=== PATIENT | female | born 1985 | race Two or more races ===

== ENCOUNTER 2024-06-29 21:21 | Emergency (ER) | payer MEDICAID, SELFPAY ==
[2024-06-29 21:23] VITALS: BMI 38.9
[2024-06-29 21:58] VITALS: BP 153/87; PULSE 82; RESP 18; TEMP 37; O2SAT 98
--- NOTE | 2024-06-29 22:01 | XR_ITS ---
Examination: Complete OB ultrasound, less than 14 weeks, transabdominal Date and time of exam: June 29, 2024 1034 hrs. Indications: Vaginal bleeding today with pelvic pain Technique: Obstetrical ultrasound images less than 14 weeks performed via transabdominal imaging Findings: A normal shaped single intrauterine gestation is present in the uterus. Uterus 14.4 x 8.3 x 9.7 cm pole 5.8 cm corresponds to 12 weeks 2 days duration lesions Cardiac motion 176 BPM Ultrasonographic survey of visible and placental structures unremarkable. Amniotic fluid volume appears appropriate for this estimated gestational age. Right ovary 3.0 x 1.8 x 2.0 cm arterial flow 21 mm cyst Left ovary 3.5 x 2.4 x 2.4 cm arterial flow 15 mm follicular cyst No fluid in the cul-de-sac Impression: Viable intrauterine gestation 12 weeks 2 days No subchorionic hemorrhage.
--- NOTE | 2024-06-29 22:02 | PD.EDVAGBL ---
ED OB Contraction Preg RMI/HPI General Chief complaint: Vaginal Bleeding Stated complaint: RIGHT LOWER ABD PAIN, 11 WEEKS Time Seen by Provider: 06/29/24 22:01 Source: patient Arrival date/time: 06/29/24 21:21 39-year-old female G6, P5 with no past medical history presents emergency department complaining of vaginal spotting and abdominal cramping that started this morning. Patient denies any fever, chills, cough, shortness of breath, nausea vomiting, dysuria, or any other associated symptom. Mode of arrival: ambulatory Limitations: no limitations Related Data Previous Rx's ?Medication ?Instructions ?Recorded dicyclomine 20 mg tablet 20 mg PO QID PRN abdominal pain 05/11/19 #14 tabs ondansetron HCl 4 mg tablet 4 mg PO QID PRN nausea and 05/11/19 (Zofran) vomiting #14 tabs hydrocodone 5 mg-acetaminophen 325 1 tab PO BID PRN pain #8 tabs 08/29/21 mg tablet ibuprofen 600 mg tablet 600 mg PO Q6H #30 tabs 04/06/24 cephalexin 500 mg capsule 500 mg PO BID 7 days #14 caps 06/30/24 Allergies Allergy/AdvReac Type Severity Reaction Status Date / Time No Known Allergies Allergy Verified 04/10/24 06:23 Review of Systems Review of Systems Systems Reviewed: All systems reviewed, normal except as documented Constitutional Constitutional: Reports system reviewed and no additional complaints, except as documented, Denies body ache(s), Denies chills and Denies fever(s) Eyes Eyes: Reports system reviewed and no additional complaints, except as documented and Denies change in vision ENT Ears, Nose, Mouth, and Throat: Reports system reviewed and no additional complaints, except as documented, Denies disequilibrium, Denies dizziness, Denies sore throat and Denies vertigo Cardiovascular Cardiovascular: Reports system reviewed and no additional complaints, except as documented, Denies chest pain and Denies dyspnea Respiratory Respiratory: Reports system reviewed and no additional complaints, except as documented, Denies chest congestion, Denies cough and Denies dyspnea Gastrointestinal Gastrointestinal: Reports system reviewed and no additional complaints, except as documented, Reports abdominal pain, Denies nausea and Denies vomiting Genitourinary Genitourinary: Reports abnormal vaginal bleeding Musculoskeletal Musculoskeletal: Reports system reviewed and no additional complaints, except as documented, Denies abnormal gait and Denies arthralgias Integumentary/Breasts Skin/Breast: Reports system reviewed and no additional complaints, except as documented, Denies erythema, Denies rash and Denies wounds Neurologic Neurologic: Reports system reviewed and no additional complaints, except as documented, Denies abnormal gait, Denies disequilibrium, Denies dizziness and Denies vertigo Past Medical History Past Medical History NEUROLOGIC: Negative Neurological Disorders CARDIAC: Negative Cardiac Disorders or Congestive Heart Failure RESPIRATORY: Negative Chronic Obstructive Pulmonary Disease (COPD) GASTROINTESTINAL: Negative Gastrointestinal Disorders, Hepatitis or Colorectal Cancer GENITOURINARY: Negative Genitourinary Disorders, Renal Disease or Prostate Cancer REPRODUCTIVE: Positive Previous Pregnancies (p5); Negative Breast Cancer or Testicular Cancer MUSCULOSKELETAL: Negative Musculoskeletal Disorders or Bone Cancer ENDOCRINE: Positive Endocrine Disorders; Negative Diabetes Mellitus Type 1 or Diabetes Mellitus Type 2 HEMATOLOGIC: Negative Blood Disorders OTHER HISTORY: Positive Hospitalization (childbirth); Negative Autoimmune Disease, Down Syndrome, Developmental Delay, Shingles, Falls, Blood Transfusions, Blood Transfusion Reaction, Anesthesia Reactions, Organ Transplant, Chemotherapy, Radiation Therapy, Hyperbaric Therapy, MRSA, VRSA, Vancomycin-Resistant Enterococci, Human Immunodeficiency Virus (HIV), Chicken Pox, Measles, Mumps, Rubella ([place] Measles), Pertussis, Clostridium Difficile, Breast Cancer, Cervical Cancer, Colorectal Cancer, Lung Cancer, Ovarian Cancer, Prostate Cancer or Testicular Cancer Family History FAMILY HISTORY: Positive Family Cardiac Disorders (mother-HTN); Negative Family Psychiatric Problems, Family Respiratory Disorders, Family Gastrointestinal Problems, Family Cancer, Family Surgery or Family Anesthesia Reaction Surgical History SURGICAL: Negative Section or Organ Transplant Social History SMOKING STATUS: 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 SECOND HAND EXPOSURE: No ED Exam General Limitations: Present no limitations General appearance: Present alert and in no apparent distress Head Head exam: Present atraumatic Eye Eye exam: Present normal appearance, PERRL and EOMI ENT ENT exam: Present normal exam, normal oropharynx and mucous membranes moist Neck Neck exam: Present normal inspection, full ROM and trachea midline Chest Chest inspection: Present normal inspection and symmetric chest wall rise Respiratory Respiratory exam: Present normal lung sounds bilaterally Cardiovascular Cardiovascular exam: Present regular rate, normal rhythm and normal heart sounds Abdominal Exam Abdominal exam: Present soft and normal bowel sounds Extremities Exam Extremities exam: Present normal inspection and full ROM Back Exam Back exam: Present normal inspection and full ROM Neurological Exam Neurological exam: Present alert, oriented X3 and CN II-XII intact Psychiatric Psychiatric exam: Present normal affect and normal mood Skin Skin exam: Present warm, dry, intact and normal color Course Quality Measures none Orders Category Date Time Status US OB <= 14 weeks fetus Stat Exams 06/29/24 22:01 Completed ABO/RH Type Stat Lab 06/29/24 22:48 Completed Beta HCG,Quantitative Stat Lab 06/29/24 22:48 Completed CBC Stat Lab 06/29/24 22:48 Completed CMP [Comprehensive Metabolic Panel] Stat Lab 06/29/24 22:48 Completed Urinalysis, C/S if Indicated Stat Lab 06/29/24 23:14 Completed Urine Culture Stat Lab 06/29/24 23:14 Received Vital Signs Vital signs: Vital Signs Temperature 98.6 F 06/29/24 21:58 Pulse Rate 82 06/29/24 21:58 Respiratory Rate 18 06/29/24 21:58 Blood Pressure 153/87 H 06/29/24 21:58 Pulse Oximetry (%) 98 06/29/24 21:58 Oxygen Delivery Method Room Air 06/29/24 21:58 98% room air within normal limits Vaginal Bleeding MDM Narrative MDM Narrative: 39-year-old female G6, P5 with no past medical history presents emergency department complaining of vaginal spotting and abdominal cramping that started this morning. Patient denies any fever, chills, cough, shortness of breath, nausea vomiting, dysuria, or any other associated symptom. CBC was unremarkable for any leukocytosis and hemoglobin 11.3. CMP was unremarkable. Beta-hCG 40,734. Ultrasound findings Viable intrauterine gestation 12 weeks 2 days. urinalysis did have WBC, bacteria, and positive for leukocytes. Patient is asymptomatic but treated with antibiotic due to currently being . Patient called over telephone made aware of prescription. Patient discharged home instructed to follow-up with [facility] 24 to 48 hours. Instructed to return to emergency department for any increased bleeding or worsening symptoms. Patient data External records reviewed:: [facility] previous records Clinical information provided by:: patient Social determinants that could affect healthcare access:: none Patient has the following chronic illnesses:: See chart How is presenting disease/condition affected by chronic disease/condition?: no chronic disease Evaluation data The following diagnostics were reviewed and interpreted by me:: lab results and radiology exam(s) Lab and/or radiology exams considered but not ordered:: Ordered Interpretation Summary: Interpreted by me Medications / Prescriptions Medications or Prescriptions considered but not ordered:: Not applicable Medication administrations:: Not applicable Consultations Consultation(s) initiated? (list below): No Diagnosis Vaginal Bleeding Differential Diagnosis: threatened , dysfunctional uterine bleeding and vaginal bleeding Most likely diagnosis given after review of the tests above:: Vaginal bleeding early UTI Admission Indicated Admission indicated?: not indicated Admission Request Was there a request for admission?: No Disposition Plan Disposition Plan: Discharge Discharge Attestation Discharge Attestation: The patient and all family members were given an opportunity to ask questions and understood the discharge instructions. Discharge instructions specifically effects, indications for sooner follow up or return to the emergency department, and the expected course of current diagnosis. Patient condition: Stable Discharge Plan Plan Patient Disposition: HOME (Self Care) Disposition Comment: Stable Prescriptions/Referrals Prescriptions/Med Rec: New cephalexin 500 mg capsule 500 mg PO BID 7 Days Qty: 14 0RF No Action ondansetron HCl [Zofran] 4 mg tablet 4 mg PO QID PRN (Reason: nausea and vomiting) Qty: 14 0RF dicyclomine 20 mg tablet 20 mg PO QID PRN (Reason: abdominal pain) Qty: 14 0RF hydrocodone-acetaminophen 5-325 mg tablet 1 tab PO BID MDD 10 PRN (Reason: pain) Qty: 8 0RF ibuprofen 600 mg tablet 600 mg PO Q6H Qty: 30 0RF Problem List Clinical Impression: Vaginal bleeding affecting early , UTI in Patient/Caregiver Discharge Instructions Discharge Activity: activity as tolerated Education Materials: Bleeding During Early Additional Instructions: Plenty of fluids and stay hydrated. Pelvic rest. Follow-up with [facility] in 24 to 48 hours. Return to emergency department for any worsening symptoms or as needed. Print Language: Italian Stand Alone Forms: Stephanie Award Info., Patient Portal Info Letter MD Attestation Attestation The patient was seen by the midlevel practitioner. I, the co-signing physician, was present during the entire ER visit. While I did not physically examine the patient, I was available for consultation as needed.
[2024-06-29 23:01] LABS: Basophils % (Auto) 0 % (0-2.5); Eosinophils # (Auto) 0.1 Thou/mm3 (0.0-0.5); Eosinophils % (Auto) 1 % (0-10); Hematocrit 34.9 % (36.0-46.0); Hemoglobin 11.3 g/dL (12.0-16.0); Immature Granulocytes % (Auto) 1 % (0-0); Immature Granulocytes Auto 0.06 Thou/mm3 (0.00-0.00); Lymphocytes # (Auto) 1.7 Thou/mm3 (1.0-4.8); Lymphocytes % (Auto) 23 % (10-50); Mean Corpuscular HGB Conc 32.4 g/dl (31.0-37.0); Mean Corpuscular Hemoglobin 26.5 pg (25.0-35.0); Mean Corpuscular Volume 82 fL (80-100); Monocytes # (Auto) 0.5 Thou/mm3 (0.0-0.8); Monocytes % (Auto) 7 % (0-12); Neutrophils % (Auto) 67 % (37-80); Nucleated Red Blood Cell % 0 /100 WBC (0); Platelet Count 336 Thou/mm3 (140-440); RDW Standard Deviation 51.3 fL (36.4-46.3); Red Blood Count 4.27 Miln/mm3 (4.00-5.20); White Blood Count 7.5 Thou/mm3 (3.6-11.0)
[2024-06-29 23:22] LABS: Collection Type, Urine Clean Catch
[2024-06-29 23:25] LABS: Alanine Aminotransferase 12 U/L (10-49); Albumin, Serum 4.5 gm/dL (3.5-5.0); Albumin/Globulin Ratio 1.5 (1.2-2.2); Alkaline Phosphatase 70 U/L (46-116); Anion Gap 7 (7-16); Aspartate Amino Transferase 12 U/L (0-34); BUN/Creatinine Ratio 15 Ratio (12-20); Bilirubin,Total 0.4 mg/dL (0.3-1.2); Blood Urea Nitrogen 9 mg/dL (9-23); Calcium 10.5 mg/dL (8.3-10.6); Calcium (Corrected) 10.5 mg/dL (8.5-10.1); Carbon Dioxide 25.3 mMol/L (20.0-31.0); Chloride 104 mMol/L (98-107); Creatinine (Component) 0.6 mg/dL (0.6-1.3); Estimated Creatinine Clearance 131.3 mL/min (>60); Glucose 92 mg/dL (74-106); Osmolality,Calculated 270 (275-295); Potassium 3.9 mMol/L (3.4-5.1); Sodium 136 mMol/L (136-145); Total Protein 7.5 gm/dL (5.7-8.2); eGFR > 60 See Note
[2024-06-29 23:45] LABS: Bacteria,Urine 1+; Bilirubin,Urine Negative (Negative); Blood,Urine 3+ (Negative); Clarity,Urine Turbid (Clear/Hazy); Color,Urine Light-Red (Lt Yel-Yel); Glucose, Urine Negative (Negative); Ketones,Urine Negative (Negative); Leukocyte Esterase,Urine Positive (Negative); Nitrite,Urine Negative (Negative); PH,Urine 6.5 (5.0-7.0); Protein,Urine 2+ (Neg - Trace); RBC,Urine 312 /hpf (0-3); Specific Gravity,Urine 1.007 (1.001-1.035); Squamous Epithelial Cell,Urine 7 /hpf (0-5); Urobilinogen,Urine Negative mg/dL (0.0-1.0); WBC,Urine 25 /hpf (0-5)
[2024-06-29 23:48] LABS: Culture Indicated,Urine Yes
[2024-06-29 23:59] LABS: Beta HCG,Quantitative 40734 mIU/mL (<5.0)
[2024-06-30 00:22] VITALS: BP 134/67; PULSE 67; RESP 19; TEMP 36.7; O2SAT 99
== END 2024-06-30 00:23 | disposition home or self-care (01) ==
LOC: SERX 06-30 01:33
PROVIDERS: Emergency Provider Emergency Medicine
DX: O20.9 Hemorrhage in early pregnancy, unspecified (principal); O23.41 Unspecified infection of urinary tract in pregnancy, first trimester; N39.0 Urinary tract infection, site not specified; Z3A.12 12 weeks gestation of pregnancy
CPT/HCPCS: 36415; 76801; 80053; 81001; 84702; 85025; 86900; 86901; 87086; 99284

== ENCOUNTER 2024-10-31 21:18 | Observation (INO) | payer MEDICAID, SELFPAY ==
[2024-10-31 21:27] VITALS: BP 165/93; PULSE 96; RESP 18; RESP 97; TEMP 36.7
[2024-10-31 21:41] VITALS: BP 165/93; PULSE 96
[2024-10-31 21:57] VITALS: BP 124/65; PULSE 86
[2024-10-31 22:06] VITALS: BMI 43.5
[2024-10-31 22:12] VITALS: BP 109/58; PULSE 78
[2024-10-31 22:22] LABS: Collection Type, Urine Clean Catch
[2024-10-31 22:28] LABS: Bacteria,Urine 1+; Bilirubin,Urine Negative (Negative); Blood,Urine 1+ (Negative); Clarity,Urine Clear (Clear/Hazy); Color,Urine Lt-Yellow (Lt Yel-Yel); Glucose, Urine Negative (Negative); Ketones,Urine Negative (Negative); Leukocyte Esterase,Urine Negative (Negative); Nitrite,Urine Negative (Negative); PH,Urine 6.5 (5.0-7.0); Protein,Urine Negative (Neg - Trace); RBC,Urine 2 /hpf (0-3); Specific Gravity,Urine 1.009 (1.001-1.035); Squamous Epithelial Cell,Urine 4 /hpf (0-5); Urobilinogen,Urine Negative mg/dL (0.0-1.0); WBC,Urine < 1 /hpf (0-5)
[2024-10-31 22:29] LABS: Culture Indicated,Urine Yes
--- NOTE | 2024-11-01 00:23 | PC.NURSE ---
2238: Late entry, Dr Saenz updated on maternal and status, b/p's and u/a results. Order to d/c home, pt to keep f/u appt with OB provider Brant shabazz and adan.
== END 2024-10-31 22:54 | disposition home or self-care (01) ==
PROVIDERS: Admitting Provider Obstetrics & Gynecology; Visit Provider Obstetrics & Gynecology
DX: O26.893 Other specified pregnancy related conditions, third trimester (principal); Z3A.29 29 weeks gestation of pregnancy; R10.9 Unspecified abdominal pain
CPT/HCPCS: 59025; 59899; 81001; 87086

== ENCOUNTER 2024-11-09 12:12 | Emergency (ER) | payer MEDICAID, SELFPAY ==
[2024-11-09 12:14] VITALS: BMI 43.1
--- NOTE | 2024-11-09 12:34 | EKG_ITS ---
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
[2024-11-09 12:47] VITALS: BP 122/76; PULSE 87; RESP 16; TEMP 36.9; O2SAT 97
--- NOTE | 2024-11-09 12:55 | EDRME_ITS ---
Rapid Medical Screening Exam RME Arrival date/time: 11/09/24 12:12 39-year-old female with history of gestational diabetes presents to the emergency room with a chief complaint of 7 out of 10 intermittent sternal chest pain x 2 days I have greeted and performed a focused initial assessment of this patient. A com prehensive ED assessment and evaluation of the patient, analysis of all test results, and completion of the medical decision making process will be conducted by additional ED providers. Chief Complaint: Chest Pain Vital signs reviewed by provider: Yes
[2024-11-09 13:04] LABS: Basophils % (Auto) 0 % (0-2.5); Eosinophils # (Auto) 0.1 Thou/mm3 (0.0-0.5); Eosinophils % (Auto) 1 % (0-10); Hematocrit 32.6 % (36.0-46.0); Hemoglobin 11.1 g/dL (12.0-16.0); Immature Granulocytes % (Auto) 2 % (0-0); Immature Granulocytes Auto 0.24 Thou/mm3 (0.00-0.00); Lymphocytes # (Auto) 1.5 Thou/mm3 (1.0-4.8); Lymphocytes % (Auto) 14 % (10-50); Mean Corpuscular Hemoglobin 28.2 pg (25.0-35.0); Mean Corpuscular Volume 83 fL (80-100); Monocytes # (Auto) 0.7 Thou/mm3 (0.0-0.8); Monocytes % (Auto) 7 % (0-12); Neutrophils # (Auto) 7.7 Thou/mm3 (1.8-7.7); Neutrophils % (Auto) 75 % (37-80); Nucleated Red Blood Cell % 0 /100 WBC (0); Platelet Count 307 Thou/mm3 (140-440); RDW Standard Deviation 39.8 fL (36.4-46.3); Red Blood Count 3.94 Miln/mm3 (4.00-5.20); White Blood Count 10.2 Thou/mm3 (3.6-11.0)
[2024-11-09 13:18] LABS: INR 0.9 (0.9-1.3); Partial Thromboplastin Time 27.3 Seconds (22.0-36.0); Prothrombin Time 10.3 Seconds (9.0-12.2)
[2024-11-09 13:23] LABS: B-Type Natriuretic Peptide < 20 pg/mL (0-100)
[2024-11-09 13:24] LABS: Alanine Aminotransferase 14 U/L (10-49); Albumin, Serum 3.8 gm/dL (3.5-5.0); Albumin/Globulin Ratio 1.4 (1.2-2.2); Alkaline Phosphatase 112 U/L (46-116); Anion Gap 9 (7-16); Aspartate Amino Transferase 16 U/L (0-34); BUN/Creatinine Ratio 13 Ratio (12-20); Bilirubin,Total 0.4 mg/dL (0.3-1.2); Blood Urea Nitrogen < 5 mg/dL (9-23); Calcium (Corrected) 9.2 mg/dL (8.5-10.1); Carbon Dioxide 19.7 mMol/L (20.0-31.0); Chloride 106 mMol/L (98-107); Creatinine (Component) 0.4 mg/dL (0.6-1.3); Estimated Creatinine Clearance 200.9 mL/min (>60); Globulin 2.8 gm/dL (2.3-3.5); Glucose 71 mg/dL (74-106); Magnesium 1.7 mg/dL (1.6-2.6); Osmolality,Calculated 265 (275-295); Sodium 135 mMol/L (136-145); Total Protein 6.6 gm/dL (5.7-8.2); Troponin I < 0.002 ng/mL (0.0-0.045); eGFR > 60 See Note
[2024-11-09 15:15] VITALS: BP 143/89; PULSE 82; RESP 18; TEMP 36.7; O2SAT 98
--- NOTE | 2024-11-09 15:22 | EDNOTE_ITS ---
ED General RME/HPI General Chief complaint: Chest Pain Stated complaint: CHEST PRESSURE, SOB X 2 DAYS, 31WKS PREG Time Seen by Provider: 11/09/24 14:56 Arrival date/time: 11/09/24 12:12 CC: Center anterior chest pain 7 out of 10 intermittent for the past 2 days last episode was early this morning with mild sweatiness. No prior history of similar events denies fever chills shortness of breath chest pain or difficulty breathing at the time of the exam. Patient is awake alert oriented nontoxic- appearing not in any acute distress. RME / HPI RME / HPI narrative: 11/09/24 12:12 39-year-old female with history of gestational diabetes presents to the emergency room with a chief complaint of 7 out of 10 intermittent sternal chest pain x 2 days I have greeted and performed a focused initial assessment of this patient. A comprehensive ED assessment and evaluation of the patient, analysis of all test results, and completion of the medical decision making process will be conducted by additional ED providers. Related Data Home Medications ?Medication ?Instructions ?Recorded ?Confirmed metformin 500 mg tablet 500 mg PO BID GDM 10/31/24 0 10/31/24 multivitamin with folic acid 400 tab PO 10/31/24 mcg tablet (Daily-Michelle (with folic acid)) Allergies Allergy/AdvReac Type Severity Reaction Status Date / Time No Known Allergies Allergy Verified 11/09/24 12:18 Review of Systems Review of Systems Narrative Review of Systems: GEN: No fever, no chills, no weight loss EYES: No discharge, no visual changes, no pain HEENT: No ear pain, no congestion, no sore throat PULM: No shortness of breath, no cough, no congestion CV: + chest pain, no dyspnea on exertion, no palpitations GI: No nausea, no vomiting, no diarrhea, no pain, no constipation : No frequency, no urgency, no dysuria MUSC/SKEL: No joint pain, no back pain SKIN: No rash PSYCH: No hallucinations, no depression HEME/LYMPH: No easy bleeding or bruising tendencies NEURO: No weakness, no headache ED Exam Narrative Physical exam: [General: Obese not in any acute distress Head normocephalic HEENT: Within acceptable limits Neck is supple nontender Chest equal chest rise nontender to palpation Respiratory: Clear to auscultation no wheezes crackles or rubs CV: Rate rhythm is regular no murmurs rubs or clicks Abdomen is distended secondary to body habitus soft nontender no masses positive bowel sounds all 4 quadrants Back: No CVA tenderness no spinous process tenderness from cervical spine thoracic and lumbar spine Skin: Intact no petechiae rash induration ulceration or crepitus Extremities: Moving all extremity against resistance cap refill less than 2 seconds neurosensory intact. No lower extremity edema. Neuro: Awake alert oriented x3 Glascow coma 15 no focal deficits] Course Quality Measures none Orders Category Date Time Status EKG (ED ONLY) *Do not use* NOW Care 11/09/24 12:34 Completed Glucose [Bedside Blood Glucose] NOW Care 11/09/24 14:55 Active EKG (ED Only) Stat Exams 11/09/24 12:34 Draft B-Type Natriuretic Peptide Stat Lab 11/09/24 12:41 Completed CBC Stat Lab 11/09/24 12:41 Completed Comprehensive Metabolic Panel Stat Lab 11/09/24 12:41 Completed Magnesium Stat Lab 11/09/24 12:41 Completed Partial Thromboplastin Time Stat Lab 11/09/24 12:41 Completed Prothrombin Time with INR Stat Lab 11/09/24 12:41 Completed Troponin I Stat Lab 11/09/24 12:41 Completed Vital Signs Vital signs: Vital Signs Temperature 98.5 F 11/09/24 12:47 Pulse Rate 87 11/09/24 12:47 Respiratory Rate 16 11/09/24 12:47 Blood Pressure 122/76 11/09/24 12:47 Pulse Oximetry (%) 97 11/09/24 12:47 Oxygen Delivery Method Room Air 11/09/24 12:47 [facility] Patient data External records reviewed:: [facility] previous records Clinical information provided by:: patient Social determinants that could affect healthcare access:: none Patient has the following chronic illnesses:: None How is presenting disease/condition affected by chronic disease/condition?: u neffected by Evaluation data The following diagnostics were reviewed and interpreted by me:: lab results, radiology exam(s) and EKG tracing(s) Lab and/or radiology exams considered but not ordered:: EKG performed at 1249 shows a ventricular rate of 84 IA interval 147 QRS of 82 QTc of 372 is normal sinus rhythm. CBC shows no leukocytosis anemia of 11.1 and 32.6 respectively. No thrombocytopenia Coags within acceptable limits CMP shows sodium 135 CO2 of 19.7 BUN less than 5 creatinine 0.4 glucose of 71 calculated serum osmolality of 265 no other electrolyte imbalances renal impairment transaminitis or T. bili elevation BNP is negative Troponin is negative Interpretation Summary: Patient has a heart score of 0, at this time of low index of suspicion of any acute finding, patient advised to follow with her primary care provider and consider an outpatient cardiac workup. If the patient has persistent chest pain that is unrelenting or worsening patient is to return the emergency room for reevaluation. Medications Medications considered but not ordered:: None Medication administrations:: None Consultations Consultation(s) initiated? (list below): No Diagnosis Differential Diagnosis ED Complaint MDM: ACS [place] pneumonia Most likely diagnosis given after review of the tests above:: Intermittent chest pain Admission Indicated Admission indicated?: not indicated Explain why admission is indicated or not indicated:: Stable for outpatient follow-up Admission Request Was there a request for admission?: No Disposition Plan Disposition Plan: Discharge Discharge Attestation Discharge Attestation: The patient and all family members were given an opportunity to ask questions and understood the discharge instructions. Discharge instructions specifically effects, indications for sooner follow up or return to the emergency department, and the expected course of current diagnosis. Patient condition: Stable Medical Decision Making Differential Diagnosis Differential Diagnosis: ACS [place] pneumonia Lab Data 11/09/24 12:41 11/09/24 12:41 Labs: Lab Results 11/09/24 Range/Units 12:41 WBC 10.2 (3.6-11.0) Thou/mm3 RBC 3.94 L (4.00-5.20) Miln/mm3 Hgb 11.1 L (12.0-16.0) g/dL Hct 32.6 L (36.0-46.0) % MCV 83 (80-100) fL MCH 28.2 (25.0-35.0) pg MCHC 34.0 (31.0-37.0) g/dl RDW Std Deviation 39.8 (36.4-46.3) fL Plt Count 307 (140-440) Thou/mm3 Neut % (Auto) 75 (37-80) % Lymph % (Auto) 14 (10-50) % [place] % (Auto) 7 (0-12) % Eos % (Auto) 1 (0-10) % Baso % (Auto) 0 (0-2.5) % Neut # (Auto) 7.7 (1.8-7.7) Thou/mm3 Lymph # (Auto) 1.5 (1.0-4.8) Thou/mm3 [place] # (Auto) 0.7 (0.0-0.8) Thou/mm3 Eos # (Auto) 0.1 (0.0-0.5) Thou/mm3 Baso # (Auto) 0.0 (0.0-0.2) Thou/mm3 Immature Gran # (Auto) 0.24 H (0.00-0.00) Thou/mm3 Absolute Nucleated RBC 0.00 (0.00-0.00) Thou/mm3 Immature Gran % 2 H (0-0) % Nucleated RBC % 0 (0) /100 WBC PT 10.3 (9.0-12.2) Seconds INR 0.9 (0.9-1.3) APTT 27.3 (22.0-36.0) Seconds Sodium 135 L (136-145) mMol/L Potassium 4.0 (3.4-5.1) mMol/L Chloride 106 (98-107) mMol/L Carbon Dioxide 19.7 L (20.0-31.0) mMol/L Anion Gap 9 (7-16) BUN < 5 L (9-23) mg/dL Creatinine 0.4 L (0.6-1.3) mg/dL Estim Creat Clear Calc 200.9 (>60) mL/min eGFR > 60 (60 - ) See Note BUN/Creatinine Ratio 13 (12-20) Ratio Glucose 71 L (74-106) mg/dL Calculated Osmolality 265 L (275-295) Calcium 9.0 (8.3-10.6) mg/dL Corrected Calcium 9.2 (8.5-10.1) mg/dL Magnesium 1.7 (1.6-2.6) mg/dL Total Bilirubin 0.4 (0.3-1.2) mg/dL AST 16 (0-34) U/L ALT 14 (10-49) U/L Alkaline Phosphatase 112 (46-116) U/L Troponin I < 0.002 (0.0-0.045) ng/mL B-Natriuretic Peptide < 20 (0-100) pg/mL Total Protein 6.6 (5.7-8.2) gm/dL Albumin 3.8 (3.5-5.0) gm/dL Globulin 2.8 (2.3-3.5) gm/dL Albumin/Globulin Ratio 1.4 (1.2-2.2) Discharge Plan Plan Patient Disposition: HOME (Self Care) Patient condition on transfer: Stable Prescriptions/Referrals Prescriptions/Med Rec: No Action metformin 500 mg tablet 500 mg PO BID Patient Comments: TOME 1 TABLETA POR V A ORAL DOS VECES AL D A CON LAS COMIDAS multivitamin with folic acid [Daily-Michelle (with folic acid)] 400 mcg tablet PO Patient Comments: TOME 1 TABLETA POR V A ORAL TODOS LOS D FOR 90 DAYS Referrals: Seferino Weston MD [Primary Care Provider] - In 1 week Problem List Clinical Impression: Intermittent chest pain, Atypical chest pain Patient/Caregiver Discharge Instructions Education Materials: ED Chest Pain, Uncertain Cause Additional Instructions: Return the emergency room if there is persistent chest pain in spite of medication. Print Language: Lithuanian Stand Alone Forms: Stephanie Award Info., Work/School Release, Patient Portal Info Letter PA/SERVOMECHANISM ASSEMBLER Supervising Physician PA/SERVOMECHANISM ASSEMBLER Supervising Physician: Clyde Pang ENP
== END 2024-11-09 16:11 | disposition home or self-care (01) ==
PROVIDERS: Nurse Practitioner Family; Emergency Provider Emergency Medicine; PCP Family Medicine
DX: O99.891 Other specified diseases and conditions complicating pregnancy (principal); R07.89 Other chest pain; R06.02 Shortness of breath; Z3A.31 31 weeks gestation of pregnancy
CPT/HCPCS: 36415; 80053; 83735; 83880; 84484; 85025; 85610; 85730; 93005; 99283

== ENCOUNTER 2024-11-23 12:32 | Outpatient (CLI) | payer MEDICAID, SELFPAY ==
[2024-11-23 12:35] VITALS: BMI 44.0
--- NOTE | 2024-11-23 12:37 | XR_ITS ---
Examination: Biophysical profile, ultrasound Date and time of exam: November 23, 2024 1244 hrs. Indications: Diagnosis advanced maternal age, diagnosis maternal obesity, diagnosis gestational diabetes Technique: Multiple transabdominal sonographic images of the pelvis abdomen obtained. Attention is directed to the breathing movement, gross body movement, amniotic fluid volume and tone. Findings: Amniotic fluid index 14.6 cm Total biophysical profile is 8 of 8. breathing movement is 2. Gross body movement is 2. tone is 2. Qualitative amniotic fluid volume is 2 Impression: Biophysical profile is 8 of 8.
[2024-11-23 12:58] VITALS: BP 129/74; PULSE 75
[2024-11-23 12:59] VITALS: TEMP 36.7
[2024-11-23 13:00] VITALS: BP 129/74; PULSE 75; RESP 18; RESP 98; TEMP 36.7
== END 2024-11-23 13:45 | disposition home or self-care (01) ==
LOC: S4S1 12:32 → S4SX 12:33
PROVIDERS: Referring Provider Obstetrics & Gynecology; Visit Provider Obstetrics & Gynecology
DX: O24.419 Gestational diabetes mellitus in pregnancy, unspecified control (principal); O99.213 Obesity complicating pregnancy, third trimester; E66.9 Obesity, unspecified; O09.523 Supervision of elderly multigravida, third trimester; Z3A.33 33 weeks gestation of pregnancy
CPT/HCPCS: 59025; 76819

== ENCOUNTER 2024-12-20 10:36 | Outpatient (RCR) | payer MEDICAID, SELFPAY ==
--- NOTE | 2024-12-06 11:16 | XR_ITS ---
Examination: Biophysical profile, ultrasound Date and time of exam: December 06, 2024 1149 hours INDICATIONS: Diagnosis gestational diabetes, diagnosis advanced maternal age, diagnosis maternal obesity Technique: Multiple transabdominal sonographic images of the pelvis abdomen obtained. Attention is directed to the breathing movement, gross body movement, amniotic fluid volume and tone. Findings: Amniotic fluid index 12.5 cm Total biophysical profile is 8 of 8. breathing movement is 2. Gross body movement is 2. tone is 2. Qualitative amniotic fluid volume is 2 Impression: Biophysical profile is 8 of 8.
[2024-12-06 12:15] VITALS: BP 135/81; PULSE 71; RESP 18; TEMP 37.1
--- NOTE | 2024-12-13 10:45 | XR_ITS ---
Examination: Biophysical profile, ultrasound Date and time of exam: December 13, 2024 1116 hours INDICATIONS: Diagnosis gestational diabetes, diagnosis advanced maternal age Technique: Multiple transabdominal sonographic images of the pelvis abdomen obtained. Attention is directed to the breathing movement, gross body movement, amniotic fluid volume and tone. Findings: Amniotic fluid index 17.4 cm Total biophysical profile is 8 of 8. breathing movement is 2. Gross body movement is 2. tone is 2. Qualitative amniotic fluid volume is 2 Impression: Biophysical profile is 8 of 8.
[2024-12-13 11:34] VITALS: BP 124/60; PULSE 79; RESP 16; TEMP 36.7
--- NOTE | 2024-12-20 10:44 | XR_ITS ---
Examination: Biophysical profile, ultrasound Date and time of exam: December 20, 2024 1059 hours INDICATIONS: Diagnosis gestational diabetes, diagnosis advanced maternal age Technique: Multiple transabdominal sonographic images of the pelvis abdomen obtained. Attention is directed to the breathing movement, gross body movement, amniotic fluid volume and tone. Findings: Amniotic fluid index 16.1 cm Total biophysical profile is 8 of 8. breathing movement is 2. Gross body movement is 2. tone is 2. Qualitative amniotic fluid volume is 2 Impression: Biophysical profile is 8 of 8.
[2024-12-20 11:34] VITALS: BP 127/62; PULSE 76; RESP 16; TEMP 36.7
== END 2024-12-20 23:59 | disposition home or self-care (01) ==
LOC: S4S1 10:36
PROVIDERS: Referring Provider Student in an Organized Health Care Education/Training Program; Visit Provider Student in an Organized Health Care Education/Training Program
DX: O24.410 Gestational diabetes mellitus in pregnancy, diet controlled (principal); O09.523 Supervision of elderly multigravida, third trimester; Z3A.36 36 weeks gestation of pregnancy
CPT/HCPCS: 59025; 76819

== ENCOUNTER 2024-12-22 10:48 | Outpatient (AMB) | payer MEDICAID, SELFPAY ==
[2024-12-22 11:06] VITALS: BP 164/91; PULSE 98; RESP 18; TEMP 36.2; O2SAT 97
--- NOTE | 2024-12-22 11:06 | OBCLNT_ITS ---
Vital Signs 12/22/24 11:06 Weight 105.29 kg Weight Measurement Method Standing Scale BP 164/91 H Blood Pressure Source Automatic Cuff Blood Pressure Location Left Upper Arm Position Sitting Respiration 18 Pulse 98 Pulse Source Monitor Temp 97.2 F Temp Source Oral Pulse Oximetry (%) 97 Oxygen Delivery Method Room Air Allergies/Home Meds Allergies & Medications Allergies No Known Allergies Allergy (Verified 12/22/24 12:14) Medication Reconciliation metformin 500 mg tablet 500 mg PO BID GDM 10/31/24 [History Confirmed 12/22/24] multivitamin with folic acid 400 mcg tablet (Daily-Michelle (with folic acid)) 1 tab PO QDAY 10/31/24 [History Confirmed 12/22/24] Intake Visit Data Collection New Patient or Established: Established Patient (seen at [facility] within 3 years) Reason for Visit:: OBT Seen by Clinical Staff ONLY (RN/MA): No Knit Tubing Dyer Required: No Do You Feel Safe at Home: Yes Authorities Contacted: N/A PCP or OBGYN visit in last 3 months: Yes Hx Now: Yes Are you currently on any form of Control: No Pain Present Currently: No Pain Scale Used: [place]-Segovia/Numerical Pain scale:: 0 Smoking Status Smoking Status: 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 Questionnaires Covid-19 Vaccine Questionnaire Has patient been vacinated for Covid-19 Have you been vacinated for Covid-19: Yes PHQ-9 PHQ-2 Over the last 2 weeks, how often have you been bothered by any of the following problems? 1. Little interest or pleasure in doing things: not at all 2. Feeling down, depressed, or hopeless: not at all Total score: 0 PHQ-9 3. Trouble falling or staying asleep, or sleeping too much: Not at all 4. Feeling tired or having little energy: Not at all 5. Poor appetite or overeating: Not at all 6. Feeling bad about yourself - or that you are a failure or have let yourself or your family down: Not at all 7. Trouble concentrating on things, such as reading the newspaper or watching television: Not at all 8. Moving or speaking so slowly that other people could have noticed? - Or the opposite - being so fidgety or restless that you have been moving around a lot more than usual: not at all 9. Thoughts that you would be better off or of hurting yourself in some way: Not at all Total score: 0 If you checked off any problems, how difficult have these problems made it for you to do your work, take care of things at home, or get along with other people?: not difficult at all Source: Developed by Drs. Rolf Koch, Radha Vance, Brandin Garcia and colleagues, with an educational cynthia from [employer]. Depression screen completed yes Social History Living Situation History Marital Status: Lives With: Family Housing: House Tobacco History Smoking Status: 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 Second Hand Smoke Exposure: No Alcohol History Alcohol Intake: Never Domestic Abuse History Do You Feel Safe at Home: Yes Past Medical History Past Medical History Have you ever been diagnosed with any of the following: Cardiology Problems Congestive Heart Failure: No Respiratory Problems Chronic Obstructive Pulmonary Disease (COPD): No Stomache/Intestinal Problems Hepatitis: No Colorectal Cancer: No Genital/Urinary Problems Renal Disease: No Reproductive Problems Breast Cancer: No Previous Pregnancies: Yes (p5) Musculoskeletal Problems Bone Cancer: No Endocrine Problems Diabetes Mellitus Type 1: No Diabetes Mellitus Type 2: No Other Problems Hospitalization: Yes (childbirth) Down Syndrome: No Developmental Delay: No Shingles: No Falls: No Blood Transfusions: No Blood Transfusion Reaction: No Anesthesia Reactions: No Organ Transplant: No Chemotherapy: No Radiation Therapy: No Hyperbaric Therapy: No MRSA: No VRSA: No Vancomycin-Resistant Enterococci: No Human Immunodeficiency Virus (HIV): No Chicken Pox: No Measles: No Mumps: No Rubella (Irish Measles): No Pertussis: No Clostridium Difficile: No Cervical Cancer: No Lung Cancer: No Ovarian Cancer: No History of Present Illness HPI Narrative 39-year-old 6 para 5 for OB transfer. Patient's been followed at [facility] care. First visit was at 12 weeks. Patient had has had a history of GDM with this . And she has been taking metformin 500 mg twice daily. Patient reports that sugars the fastings have been in the 80s and she has had good results while checking her sugars. Patient is getting weekly NST BPP. Reports movement. Denies any signs symptoms of labor. No leaking or bleeding. Patient has no history of surgeries. She has a history of being prediabetic. And she denies any social habits. Last. Is April 07, 2024. And this gave due date January 10, 2025. Patient reports that her maternal medicine ultrasounds have been normal. Denies PIH complaints at this time OB Initial Visit OB Flowsheet OB Flowsheet Initial Weight: Not Recorded Date -?-?-?-?-?-?-?-?-?-?-?-?- EGA Weight Edema CTX Effacement BP Fundal ht Pres Dilation Effacement Station Visit Note Alb Glu FHR Mov 12/22/24 -?-?-?-?-?-?-?-?-?-?-?-?- 37w 0d 105.29 kg 1+ absent 164/91 39 cephalic 39-year-old 6 para 5 for first OB appointment. Patient is a transfer care from [facility]. History of diabetes with this . Patient is been taking metformin 500 twice daily with good compliance. Patient had good compliance with her diet. Patient reports that she checks her sugars 4 times a day. Fastings have been all below 100. And she reports that she is at goal about 90% of the time. Compliant with weekly NST BPP. Patient has a history biggest baby being 9 pounds 12. She states this baby is just as big. Denies any PIH complaints at this time. Blood pressure today 164/91 and then she had at 150/90. Reports good movement. No leaking or bleeding. So I directed patient to go to labor and delivery for PIH workup at this time. Medical release has been filled out at [email or web address] [facility] [employer] work for records. 39-year-old 6 para 5 for first OB appointment. Patient is a transfer care from [facility]. History of diabetes with this . Patient is been taking metformin 500 twice daily with good compliance. Patient had good compliance with her diet. Patient reports that she checks her sugars 4 times a day. Fastings have been all below 100. And she reports that she is at goal about 90% of the time. Compliant with weekly NST BPP. Patient has a history biggest baby being 9 pounds 12. She states this baby is just as big. Denies any PIH complaints at this time. Blood pressure today 164/91 and then she had at 150/90. Reports good movement. No leaking or bleeding. So I directed patient to go to labor and delivery for PIH workup at this time. Medical release has been filled out at [employer] work for records. Labor precautions and kick count twice a day discussed. 156 active Menstrual History Menstrual reliability: definite Flow: normal Menstrual regularity: regular Monthly: Yes Age at menarche: 12 On control pills at conception: No OB History : 6 Para: 5 Hx # Pregnancies: 0 Hx Total # of Abortions (Spontaneous & Elective): 0 # of Living Children: 5 Delivery History 1st : Child's name: SHANTEL BRAUN date: 11/02/00 sex: male Delivery type: vaginal weight (lbs): 3628.739 g History of depression before or after : No 2nd : Child's name: GINA BRAUN date: 01/02/03 sex: female Delivery type: vaginal History of depression before or after : No 3rd : Child's name: SWAPNA BRAUN date: 08/07/05 sex: male Delivery type: vaginal History of depression before or after : No 4th : Child's name: YOLY BRAUN date: 01/22/07 sex: female Delivery type: vaginal History of depression before or after : No 5th : Child's name: ELOISA BRAUN date: 12/22/17 sex: male Delivery type: vaginal History of depression before or after : No Infection History & Risk Evaluation History of STDs: none HIV risk evaluation: low risk Hepatitis B risk evaluation: low risk Patient or partner has history of Genital Herpes: No Varicella/chicken pox status: immunized Genetic Screening & History Genetic Screening/Teratology Counseling - Includes patient, baby's father, or anyone in either family with: 1. Patient's age 35 years or older as of estimated date of delivery: Yes 2. Thalassemia (Uzbek, Zimbabwean, Mediterranean, or Background); MCV less than 80: No 3. Neural Tube Defect (Meningomyelocele, Spina Bifida, or Anencephaly): No 4. Congenital Heart Defect: No 5. Down Syndrome: No 6. Addy-Sachs (Ashkenazi Hinduism, Cajun, Greenlandic Kimble): No 7. Lalo Disease (Ashkenazi Hinduism): No 8. Familial Dysautonomia (Ashkenazi Hinduism): No 9. Sickle Cell Disease or Trait (): No 10. Hemophilia or other blood disorders: No 11. Muscular Dystrophy: No 12. Cystic Fibrosis: No 13. Cecille's Chorea: No 14. Mental Retardation/Autism: No 15. Other inherited genetic or chromosomal disorder: No 16. Maternal Metabolic Disorder (EG,TYPE 1 Diabetes, PKU): No 17. Patient or baby's father had a child with defects not listed above: No 18. Recurrent loss or a stillbirth: No 19. Medications (including supplements, vitamins, herbs or otc drugs)/illicit/recreational drugs/alcohol since last menstrual period: No 20. Any other: No Infection History 1. Live with someone with TB or exposed to TB: No 2. Rash or viral illness since last menstrual period: No 3. Hepatitis B,C: No Other (see comments) Source: [employer] Review of Systems Review of Systems Systems Reviewed: All systems reviewed, normal except as documented Exam General Limitations: no limitations General Appearance: alert, in no apparent distress, comfortable, cooperative, healthy appearing, well developed and well groomed Head Head exam: atraumatic, normocephalic and normal inspection Neck Neck exam: Present normal inspection, full ROM and trachea midline Resp Respiratory exam: Present normal lung sounds bilaterally Card Cardiovascular exam: Present regular rate, normal rhythm and normal heart sounds Abdominal Abdominal exam: Present soft and normal bowel sounds Psych Psychiatric exam: Present normal affect and normal mood Assessment & Plan Diagnosis / Problem List (1) Gestational diabetes: Status: Acute (2) Encounter for supervision of normal in multigravida in [facility] center: Status: Acute (3) Advanced maternal age (AMA) in : Status: Acute Plan Continue prenatals. Continue metformin 500 twice daily as directed. Continue with weekly NST BPP. Discussed kick count twice a day. Reviewed and continue with GDM diet and glucose monitoring 4 times a day. Discussed labor precautions. Discussed PIH precautions. Patient was sent to labor and delivery for PIH workup Additional Plan Follow Up: 1 Week (obc) Office Procedures OB Clinic LOC & Office Proc's Nursing/Assessment Patient Status: Established Patient OB Clinic Nursing Assessment: BP Monitoring, Medication Reconciliation, Update PMH in EMR and Vital Signs OB Clinic Coordination of Care: Consent,records obtained, informed consent, Education Simp Pt/Fam, Lab and Imaging orders and Staff clarify orders Special Needs: Heart tones Established Patient Charge Established Patient Point Assignment: 120 Established Patient Point Charge: EP Level 4 (120-155)
== END 2024-12-22 11:33 | disposition home or self-care (01) ==
LOC: HODSOBC 10:48
PROVIDERS: Supervising Provider Advanced Practice Midwife; Visit Provider Advanced Practice Midwife
DX: O09.523 Supervision of elderly multigravida, third trimester (principal); Z3A.37 37 weeks gestation of pregnancy; O09.43 Supervision of pregnancy with grand multiparity, third trimester; O09.893 Supervision of other high risk pregnancies, third trimester; O24.415 Gestational diabetes mellitus in pregnancy, controlled by oral hypoglycemic drugs
CPT/HCPCS: 81001; 99214; G0463

== ENCOUNTER 2024-12-22 11:51 | Outpatient (CLI) | payer MEDICAID, SELFPAY ==
[2024-12-22] VITALS (28 sets, daily range): BP systolic 135–149; BP diastolic 72–81; PULSE 74–92; RESP 16–98; TEMP 36.4; O2SAT 94–99; BMI 45.5
[2024-12-22 12:23] LABS: Collection Type, Urine Clean Catch
[2024-12-22 12:32] LABS: Basophils % (Auto) 0 % (0-2.5); Eosinophils # (Auto) 0.1 Thou/mm3 (0.0-0.5); Eosinophils % (Auto) 1 % (0-10); Hematocrit 32.3 % (36.0-46.0); Hemoglobin 10.9 g/dL (12.0-16.0); Immature Granulocytes % (Auto) 3 % (0-0); Immature Granulocytes Auto 0.33 Thou/mm3 (0.00-0.00); Lymphocytes # (Auto) 1.4 Thou/mm3 (1.0-4.8); Lymphocytes % (Auto) 13 % (10-50); Mean Corpuscular HGB Conc 33.7 g/dl (31.0-37.0); Mean Corpuscular Hemoglobin 27.7 pg (25.0-35.0); Mean Corpuscular Volume 82 fL (80-100); Monocytes # (Auto) 0.7 Thou/mm3 (0.0-0.8); Monocytes % (Auto) 7 % (0-12); Neutrophils # (Auto) 7.8 Thou/mm3 (1.8-7.7); Neutrophils % (Auto) 76 % (37-80); Nucleated Red Blood Cell % 0 /100 WBC (0); Platelet Count 293 Thou/mm3 (140-440); RDW Standard Deviation 43.2 fL (36.4-46.3); Red Blood Count 3.94 Miln/mm3 (4.00-5.20); White Blood Count 10.3 Thou/mm3 (3.6-11.0)
[2024-12-22 13:11] LABS: Bacteria,Urine Rare; Bilirubin,Urine Negative (Negative); Blood,Urine 1+ (Negative); Clarity,Urine Turbid (Clear/Hazy); Color,Urine Yellow (Lt Yel-Yel); Glucose, Urine 3+ (Negative); Ketones,Urine Trace (Negative); Leukocyte Esterase,Urine Positive (Negative); Nitrite,Urine Negative (Negative); PH,Urine 5.5 (5.0-7.0); Protein,Urine Trace (Neg - Trace); RBC,Urine 105 /hpf (0-3); Specific Gravity,Urine 1.029 (1.001-1.035); Squamous Epithelial Cell,Urine 74 /hpf (0-5); Urobilinogen,Urine Negative mg/dL (0.0-1.0); WBC,Urine 12 /hpf (0-5)
[2024-12-22 13:20] LABS: Creatinine,Random Urine 111 mg/dL (30-125); Protein Total, Random Urine 22 mg/dL (1-14)
[2024-12-22 13:24] LABS: Alanine Aminotransferase 12 U/L (10-49); Albumin, Serum 3.7 gm/dL (3.5-5.0); Albumin/Globulin Ratio 1.5 (1.2-2.2); Alkaline Phosphatase 140 U/L (46-116); Anion Gap 8 (7-16); Aspartate Amino Transferase 15 U/L (0-34); BUN/Creatinine Ratio 20 Ratio (12-20); Bilirubin,Total 0.5 mg/dL (0.3-1.2); Blood Urea Nitrogen 8 mg/dL (9-23); Calcium 8.7 mg/dL (8.3-10.6); Calcium (Corrected) 8.9 mg/dL (8.5-10.1); Carbon Dioxide 23.1 mMol/L (20.0-31.0); Chloride 104 mMol/L (98-107); Creatinine (Component) 0.4 mg/dL (0.6-1.3); Estimated Creatinine Clearance 207.4 mL/min (>60); Globulin 2.5 gm/dL (2.3-3.5); Glucose 114 mg/dL (74-106); LDH (Lactate Dehydrogenase) 158 U/L (120-246); Osmolality,Calculated 269 (275-295); Potassium 3.9 mMol/L (3.4-5.1); Sodium 135 mMol/L (136-145); Total Protein 6.2 gm/dL (5.7-8.2); Uric Acid 4.4 mg/dL (3.1-7.8); eGFR > 60 See Note
[2024-12-22 13:39] LABS: Fibrinogen 535 mg/dL (175-375); INR 0.9 (0.9-1.3); Partial Thromboplastin Time 25.7 Seconds (22.0-36.0)
== END 2024-12-22 13:40 | disposition home or self-care (01) ==
LOC: S4S1 11:53 → S4SX 11:54
PROVIDERS: Referring Provider Specialist; Visit Provider Specialist
DX: Z34.83 Encounter for supervision of other normal pregnancy, third trimester (principal); Z36.89 Encounter for other specified antenatal screening; Z3A.37 37 weeks gestation of pregnancy
CPT/HCPCS: 36415; 59025; 80053; 81001; 82570; 83615; 84156; 84550; 85025; 85384; 85610; 85730

== ENCOUNTER 2024-12-25 19:30 | Inpatient (IN) | payer MEDICAID, SELFPAY ==
[2024-12-25] VITALS (45 sets, daily range): BP systolic 131–191; BP diastolic 61–98; PULSE 71–91; RESP 18–98; TEMP 36.6; O2SAT 86–99; BMI 52.9
--- NOTE | 2024-12-25 19:54 | XR_ITS ---
Examination: Complete OB ultrasound greater than 14 weeks Date and time of exam: December 25, 2024 2012 hours INDICATIONS: Debris evaluation, unknown presentation, unknown weight Findings: Viable intrauterine single fetus with single amniotic sac presentation transverse head maternal right Cardiac motion 153 BPM Placenta posterior grade 2 Umbilical cord insertion 3 vessel seen Amniotic fluid index 12.6 cm Cervix 3.6 cm Ovaries obscured by bowel gas. Composite estimated gestational age based on BPD, head circumference, abdominal circumference, femur length is 38 weeks 2 days Estimated weight 3460.6 g. Survey of intracranial anatomy, spinal anatomy, abdominal anatomy, four-chamber heart performed with no abnormalities identified. Impression: Viable intrauterine gestation transverse presentation Estimated gestational age 38 weeks 2 days Estimated weight 3460.6 g.
[2024-12-25] MEDS: LABETALOL INJ 5 MG/ML VIAL 20 ML 20 MG IVP (20:10)
[2024-12-25] MEDS: LABETALOL INJ 5 MG/ML VIAL 20 ML 40 MG IVP (20:35)
[2024-12-25 20:45] LABS: Collection Type, Urine Clean Catch
[2024-12-25 20:50] LABS: Basophils % (Auto) 0 % (0-2.5); Eosinophils # (Auto) 0.1 Thou/mm3 (0.0-0.5); Eosinophils % (Auto) 1 % (0-10); Hematocrit 30.9 % (36.0-46.0); Hemoglobin 10.7 g/dL (12.0-16.0); Immature Granulocytes % (Auto) 3 % (0-0); Immature Granulocytes Auto 0.28 Thou/mm3 (0.00-0.00); Lymphocytes # (Auto) 1.7 Thou/mm3 (1.0-4.8); Lymphocytes % (Auto) 15 % (10-50); Mean Corpuscular HGB Conc 34.6 g/dl (31.0-37.0); Mean Corpuscular Hemoglobin 27.7 pg (25.0-35.0); Mean Corpuscular Volume 80 fL (80-100); Monocytes # (Auto) 0.6 Thou/mm3 (0.0-0.8); Monocytes % (Auto) 6 % (0-12); Neutrophils # (Auto) 8.5 Thou/mm3 (1.8-7.7); Neutrophils % (Auto) 76 % (37-80); Nucleated Red Blood Cell # 0.02 Thou/mm3 (0.00-0.00); Nucleated Red Blood Cell % 0 /100 WBC (0); Platelet Count 311 Thou/mm3 (140-440); RDW Standard Deviation 43.2 fL (36.4-46.3); Red Blood Count 3.86 Miln/mm3 (4.00-5.20); White Blood Count 11.2 Thou/mm3 (3.6-11.0)
[2024-12-25 21:06] LABS: Alanine Aminotransferase 13 U/L (10-49); Albumin, Serum 3.6 gm/dL (3.5-5.0); Albumin/Globulin Ratio 1.4 (1.2-2.2); Alkaline Phosphatase 146 U/L (46-116); Anion Gap 9 (7-16); Aspartate Amino Transferase 13 U/L (0-34); BUN/Creatinine Ratio 20 Ratio (12-20); Bilirubin,Total 0.5 mg/dL (0.3-1.2); Blood Urea Nitrogen 14 mg/dL (9-23); Calcium 8.7 mg/dL (8.3-10.6); Carbon Dioxide 22.9 mMol/L (20.0-31.0); Chloride 105 mMol/L (98-107); Creatinine (Component) 0.7 mg/dL (0.6-1.3); Estimated Creatinine Clearance 130.3 mL/min (>60); Globulin 2.5 gm/dL (2.3-3.5); Glucose 121 mg/dL (74-106); Osmolality,Calculated 275 (275-295); Sodium 137 mMol/L (136-145); Total Protein 6.1 gm/dL (5.7-8.2); Uric Acid 4.6 mg/dL (3.1-7.8); eGFR > 60 See Note
[2024-12-25 21:20] LABS: Creatinine,Random Urine 83 mg/dL (30-125); Protein Total, Random Urine 12 mg/dL (1-14)
[2024-12-25 21:26] LABS: Bacteria,Urine 1+; Bilirubin,Urine Negative (Negative); Blood,Urine 1+ (Negative); Clarity,Urine Clear (Clear/Hazy); Color,Urine Lt-Yellow (Lt Yel-Yel); Glucose, Urine Negative (Negative); Ketones,Urine Negative (Negative); Leukocyte Esterase,Urine Negative (Negative); Nitrite,Urine Negative (Negative); PH,Urine 6.5 (5.0-7.0); Protein,Urine Negative (Neg - Trace); RBC,Urine 3 /hpf (0-3); Specific Gravity,Urine 1.017 (1.001-1.035); Squamous Epithelial Cell,Urine 10 /hpf (0-5); Urobilinogen,Urine Negative mg/dL (0.0-1.0); WBC,Urine 1 /hpf (0-5)
[2024-12-25 21:35] LABS: Syphilis Nonreactive (Nonreactive)
--- NOTE | 2024-12-25 21:46 | PD.LDHP ---
Documentation for date of: 12/25/24 OB Labor/Induct. HPI History of Present Illness Chief complaint: Painful uterine contractions since 1600 : 6 Para: 5 Term pregnancies: 5 pregnancies: 0 Living children: 5 History of Abortions: Spontaneous and Elective: 0 History of Vaginal deliveries: 5 History of sections: No History of : No Date of last menstrual period: 04/07/24 Gestational Age (weeks): 37 Gestational Age (days): 5 Gestational age based on last menstrual period: 37 History of present illness: The patient is a 39-year-old -0-0-5 at 37-5/7 weeks with an EDC of 01/12/2025 who started her care at [facility] and transferred to Luba Tao at the [facility] across the street. Patient presented to triage reporting painful contractions. Her blood pressures were in the 170s over 90s x 2. She was admitted for further evaluation. Preeclamptic labs were normal however the blood pressures only resolved after pushing 20 then 40 of labetalol. The plan was to induce the patient due to elevated blood pressures and morbid obesity with a BMI of 54. An ultrasound was ordered to check position and the baby is in a transverse lie. As patient has -induced hypertension and malpresentation she is consented for a primary low-transverse section. Of note the patient did sign tubal ligation papers in the office and has a family member that would bring them in. She does desire permanent sterilization. History of Present Dating criteria: LMP confirmed by 2nd trimester US Adequate Care: Yes Ultrasounds: normal mid trimester US Obstetrical complications: gestational hypertension Medical complications: other (Morbid obesity with a BMI of 54, AMA, grand multiparity) Labs Maternal Blood Type: A Pos Labs: Positive: Rubella Titre, Negative: RPR, Hepatitis B, HIV, Chlamydia, Gonorrhea and Group Beta Strep and Unknown: Herpes Type 1, Herpes Type 2 and Covid-19 Past Medical History Surgical History SURGICAL: Negative Section Meds Home Medications and Allergies Home Medications ?Medication ?Instructions ?Recorded ?Confirmed ?Type metformin 500 mg tablet 500 mg PO BID GDM 10/31/24 12/25/24 History multivitamin with folic acid 400 1 tab PO QDAY 10/31/24 12/25/24 History mcg tablet (Daily-Michelle (with folic acid)) Allergies Allergy/AdvReac Type Severity Reaction Status Date / Time No Known Allergies Allergy Verified 12/25/24 20:18 OB Exam Physical Exam Vital signs: Temp Pulse Resp BP Pulse Ox 97.9 F 80 18 141/66 H 96 12/25/24 19:41 12/25/24 21:39 12/25/24 19:41 12/25/24 21:39 12/25/24 21:41 Narrative: Patient is alert and oriented x 3 she is a pleasant female in no apparent distress Routine Abdominal Exam Abdominal: Present soft Comments: Morbidly obese with large pannus present. Detailed Labor and Delivery Exam Effacement (%): Thick Cervix position: posterior station: -4 Consistency: firm Presentation: Transverse Membranes: intact monitor accelerations: 15x15 monitor decelerations: None senior care variability: Moderate (11-25) Contraction frequency (min): Irregular OB Results Labs 12/25/24 20:10 12/25/24 20:10 Labs: Short CBC 12/25/24 Range/Units 20:10 WBC 11.2 H (3.6-11.0) Thou/mm3 Hgb 10.7 L (12.0-16.0) g/dL Hct 30.9 L (36.0-46.0) % Plt Count 311 (140-440) Thou/mm3 BMP 12/25/24 20:10 Sodium 137 Potassium 4.0 Chloride 105 Carbon Dioxide 22.9 BUN 14 Creatinine 0.7 Glucose 121 H Calcium 8.7 Liver Function 12/25/24 Range/Units 20:10 Total Bilirubin 0.5 (0.3-1.2) mg/dL AST 13 (0-34) U/L ALT 13 (10-49) U/L Alkaline Phosphatase 146 H (46-116) U/L Albumin 3.6 (3.5-5.0) gm/dL Urine 12/25/24 Range/Units 20:10 Urine Color Lt-Yellow (Lt Yel-Yel) Urine Clarity Clear (Clear/Hazy) Urine pH 6.5 (5.0-7.0) Ur Specific [place] 1.017 (1.001-1.035) Urine Protein Negative (Neg - Trace) Urine Glucose (UA) Negative (Negative) OB Assessment & Plan Assessment and Plan (1) Advanced maternal age (AMA) in : Status: Acute (2) Transverse lie of fetus: Status: Acute Assessment and plan: Patient just ate before coming to triage. Will consent patient for a primary with tubal ligation on 12/26/2024 at 6 AM. The risks of the procedure discussed with patient including risk of bleeding infection blood transfusion damage to bowel bladder blood vessels other organs, prolonged hospital stay should further and further surgery should any the above occur. The permanency of a tubal ligation was discussed. All questions were answered all consents were signed through a leather fitter. (3) Preeclampsia: Status: Acute Assessment and plan: Continue IV labetalol pushes as needed (4) Grand multiparity: Status: Acute Assessment and plan: Two IV lines in place. Hemorrhage medications available at CS (5) Morbid obesity with BMI of 50.0-59.9, adult: Status: Acute (6) Supervision of high risk in third trimester: Status: Acute (2) Transverse lie of fetus Qualifiers: Fetus number: single or unspecified fetus Qualified Code(s): O32.2XX0 - Maternal care for transverse and oblique lie, not applicable or unspecified (3) Preeclampsia Qualifiers: Trimester: third trimester Qualified Code(s): O14.93 - Unspecified pre-eclampsia, third trimester
[2024-12-25 21:52] LABS: Fibrinogen 547 mg/dL (175-375); INR 0.9 (0.9-1.3); Partial Thromboplastin Time 25.4 Seconds (22.0-36.0); Prothrombin Time 9.9 Seconds (9.0-12.2)
[2024-12-26] VITALS (43 sets, daily range): BP systolic 126–166; BP diastolic 60–90; PULSE 65–88; RESP 14–24; TEMP 36.3–36.9; O2SAT 95–100
--- NOTE | 2024-12-26 00:24 | PC.NURSE ---
2359 BP severe range BP reading of 167/74, RN at bedside BP cuff on patients elbow, BP cuff readjusted, BP retaken 142/67. BP cycled to retake in 20 minutes.
[2024-12-26] MEDS: FAMOTIDINE INJ 10 MG/ML VIAL 2 ML 20 MG IV (05:39)
[2024-12-26] MEDS: ceFAZolin/D5W 2 GM IV 2 GM/100 ML BAG IV (05:39)
[2024-12-26] MEDS: METOCLOPRAMIDE INJ 5 MG/ML VIAL 2 ML 10 MG IVP (05:39)
--- NOTE | 2024-12-26 07:04 | PD.LDDELS ---
Data (Dove) Data Hx Section: No Maternal Blood Type: A Pos Rubella Titre: Positive RPR: Non-reactive Labs: Negative: RPR, Hepatitis B, HIV, Chlamydia, Gonorrhea and Group Beta Strep : 6 Term: 5 : 0 Livin Abortions: Spontaneous & Theraputic: 0 Delivery Data (Dove) Labor Data Induction/Augmentation Agent: None ROM date: 12/26/24 ROM time: 06:28 Amniotic membrane rupture type: Artificial Amniotic fluid description: Clear Delivery Data EDC: 12/26/24 EDC calculated by:: LMP/early US confirmation Date of arrival to unit: 12/25/24 Time of arrival to unit: 19:30 [place] delivery date: 12/26/24 delivery time: 06:29 Gestational age (weeks): 37 Gestational age (days): 3 Placenta delivery date: 12/26/24 Placenta delivery time: 06:30 Delivered by: Jil Collado (OB Clinic) Delivery nurse: charlotte fernandez nurse: ramy jewell Manager Employee Relations at delivery: No Support person(s) at delivery: FOB Other staff at delivery: Benom- low voltage technician Delivery Method Delivery: Delivery Type: Primary Presentation: Transverse Lie Anesthesia Type Primary Anesthesia: Spinal Secondary Anesthesia: None Delivery Room Medications Intrapartum Medications: Antibiotics and Antihypertensives Other Intrapartum Medications: No Post Delivery Medications N/A: No Placenta Placenta Delivery: Manual Placenta Cultures Obtained: No Placenta Sent for Examination: No Cord Sample: Cord Blood Obtained Episiotomy Episiotomy: None EBL Estimated blood loss (ml): 400 Umbilical Cord Umbilical Vessels: 3 Nuchal Cord: Not Applicable Body Cord: Not Applicable Additional Procedures The op report for further details. Primary with bilateral near-total salpingectomies Complications Complications: None Data (Dove) [place] Data order: 1 's gender: Female Identification Band Number: [id number] Identification band number: [id number] weight (gms): 3470 g Weight (pounds): 7 lbs and 10.4 ozs [place] length: 50.25 cm 1 minute: 8 5 minutes: 9
--- NOTE | 2024-12-26 07:17 | PD.GYNPROC ---
Operative Note - INTEGRATED MARKETING SPECIALIST Procedure Date of procedure: 12/26/24 Procedure Performed: Primary with near-total bilateral salpingectomies Indication: Patient is a 39-year-old -0-0-5 at 37-3/7 weeks who presented with contractions to triage the evening of 12/25/2024. Her care was started with [facility], transferred to [facility]. Patient had just eaten prior to coming to triage. In triage her blood pressures were found to be in the 170s over 90s requiring IV labetalol 20 then 40 in order to achieve adequate blood pressures. Patient's preeclamptic labs were normal. She had 1+ protein in her urine. The plan was to admit the patient and induce her. Patient cervix was closed thick and high. An official ultrasound was read as a transverse lie transverse lie presentation. Of note patient's BMI is 53. Also of note she signed tubal ligation papers in the office and desired permanent sterilization. Her family member brought in a copy of her records. Pre-Op diagnosis: 1. IUP at 37-3/7 weeks 2. Preeclampsia 3. Morbid obesity 4. Multiparity, desires permanent sterilization 5. Transverse lie presentation Post-Op diagnosis: Same Anesthesia type: Spinal Procedure description: After obtaining informed consent, patient was brought back to the operating room and spinal anesthesia administered. She was then prepped and draped in the dorsal supine position with a leftward tilt in a normal sterile fashion. A Gatica catheter was inserted to the patient's bladder. Patient was given 2 g of Ancef by anesthesia. A Pfannenstiel skin incision was made with the scalpel and carried down to the underlying fascia. The fascia was incised the midline the fascial incision extended laterally using Ortiz scissors, the superior aspect of the fascia was grasped with Olga clamps and the underlying rectus muscles dissected off using blunt and sharp dissection. This was repeated in the inferior aspect the incision. The rectus muscles were in the midline, and the peritoneum entered sharply with a knife. This was extended superiorly and inferiorly with good visualization of the bladder. The bladder blade was inserted the uterus was incised in a low trans fashion transverse fashion above the bladder reflection with a scalpel. The uterine incision was extended laterally using blunt dissection with the surgeon's fingers. The bag kauffman was ruptured and clear fluid was noted. The bladder blade was removed and the infant was delivered cephalically in an atraumatic fashion. The cord was clamped and cut after waiting 30 seconds and the infant was handed off to the waiting pediatric staff. Cord blood was collected. Cord gases were saved. The placenta was then manually removed and the uterus was exteriorized and cleared of all clots and debris. The uterine incision was repaired using 0 Monocryl in a running locked fashion. Excellent hemostasis was noted. The uterus was returned to the patient's abdominal cavity and copious irrigation carried out with warm normal saline. The uterine incision was reexamined and noted be hemostatic. The uterus was tilted well in situ and the left fallopian tube identified and followed out to its fimbriated end. The fallopian tube was elevated with 2 Criders clamps. 2 free ties of plain were used to ligate the fallopian tube the fallopian tube was then transected and handed off the operating field. A near total portion of the left fallopian tube was identified was handed off the operating field. Same procedure was repeated in the right fallopian tube which was identified followed out to its fimbriated end ,elevated ligated and transected in a similar fashion. A near total portion of that fallopian tube was handed off the operating field. The uterine incision was reexamined and noted be hemostatic. More irrigation was used and the incision noted be hemostatic as were both fallopian tubes transection sites. After ensuring the rectus muscles were hemostatic these were reapproximated using a running suture of 0 Monocryl. The fascia was closed with running suture of 0 Vicryl. The subcutaneous tissues were irrigated and found to be hemostatic . These were reapproximated using a running suture of 3-0 plain. The skin was closed with subcuticular suture of 4-0 Monocryl. The procedure the patient tolerated the procedure well. Sponge lap needle counts were correct x 2 patient went to the cover area awake and in stable condition. Pathology was segments of bilateral fallopian tubes. Fluids: crystalloid Fluid amount (mL): 2,500 Urine output (mL): 100 Specimen: left tube and right tube Implants: None Estimated blood loss (ml): 400 Findings: Liveborn female in the OA presentation with no nuchal cord and meconium .Apgars were 8 and 9 weight was 3470 g or 7 pounds 10 ounces. The uterus was grossly normal fallopian tubes grossly normal ovaries polycystic in appearance. Complications: none Surgical staff N Operation Date: 12/26/24 07:45 <No data on this case meets the specified criteria> Billy Cuba CARPET INSPECTOR FINISHED Diagnosis Discharge Diagnosis (1) Supervision of high risk in third trimester: Status: Acute (2) Morbid obesity with BMI of 50.0-59.9, adult: Status: Acute (3) Grand multiparity: Status: Acute (4) Preeclampsia: Status: Acute (5) Transverse lie of fetus: Status: Acute (6) Advanced maternal age (AMA) in : Status: Acute Problem List Completed Was Problem List Reviewed/Reconciled?: Yes (4) Preeclampsia Qualifiers: Trimester: third trimester Qualified Code(s): O14.93 - Unspecified pre-eclampsia, third trimester (5) Transverse lie of fetus Qualifiers: Fetus number: single or unspecified fetus Qualified Code(s): O32.2XX0 - Maternal care for transverse and oblique lie, not applicable or unspecified
[2024-12-26] MEDS: OXYTOCIN in NS 20 units 20 UNIT/1,000 ML BAG 125 UNIT IV ×2 (09:02→17:22)
[2024-12-26] MEDS: KETOROLAC INJ 30 MG/ML VIAL IVP (09:02)
[2024-12-26] MEDS: DOCUSATE SOD 100 MG CAPSULE PO (10:07)
[2024-12-26] MEDS: IBUPROFEN TAB 400 MG TABLET 800 MG PO (15:21)
[2024-12-26] MEDS: HYDROcodone/APAP 5/325 TABLET 1 TAB PO (21:17)
[2024-12-27] VITALS (7 sets, daily range): BP systolic 137–165; BP diastolic 73–96; PULSE 79–98; RESP 16–18; TEMP 36.5–37.1; O2SAT 95–98
[2024-12-27] MEDS: IBUPROFEN TAB 400 MG TABLET 800 MG PO ×3 (00:17→19:46)
[2024-12-27 05:56] LABS: Basophils % (Auto) 0 % (0-2.5); Eosinophils # (Auto) 0.1 Thou/mm3 (0.0-0.5); Eosinophils % (Auto) 0 % (0-10); Hematocrit 32.8 % (36.0-46.0); Hemoglobin 10.8 g/dL (12.0-16.0); Immature Granulocytes % (Auto) 3 % (0-0); Immature Granulocytes Auto 0.34 Thou/mm3 (0.00-0.00); Lymphocytes # (Auto) 1.6 Thou/mm3 (1.0-4.8); Lymphocytes % (Auto) 11 % (10-50); Mean Corpuscular HGB Conc 32.9 g/dl (31.0-37.0); Mean Corpuscular Hemoglobin 27.4 pg (25.0-35.0); Mean Corpuscular Volume 83 fL (80-100); Monocytes # (Auto) 0.5 Thou/mm3 (0.0-0.8); Monocytes % (Auto) 4 % (0-12); Neutrophils # (Auto) 11.3 Thou/mm3 (1.8-7.7); Neutrophils % (Auto) 82 % (37-80); Nucleated Red Blood Cell % 0 /100 WBC (0); Platelet Count 298 Thou/mm3 (140-440); RDW Standard Deviation 44.7 fL (36.4-46.3); Red Blood Count 3.94 Miln/mm3 (4.00-5.20); White Blood Count 13.9 Thou/mm3 (3.6-11.0)
[2024-12-27] MEDS: HYDROcodone/APAP 5/325 TABLET 1 TAB PO (07:51)
[2024-12-27] MEDS: DOCUSATE SOD 100 MG CAPSULE PO (08:15)
--- NOTE | 2024-12-27 11:45 | ESPR_ITS ---
Subjective Subjective Interval history: Delivery type: Patient doing well this morning. No acute complaints. Ambulating, tolerating p.o. and voiding without difficulty. HTN/Pre-Eclampsia screen: No chest pain, shortness of breath, headache, visual changes, epigastric or right upper quadrant pain. Breast-feeding, lochia diminishing. Bowel: Flatus+/ BM+ Exam Vital Signs Temp Pulse Resp BP Pulse Ox O2 Del Method 98.0 F 97 18 149/88 H 96 Room Air 12/27/24 07:54 12/27/24 07:54 12/27/24 07:54 12/27/24 07:54 12/27/24 07:54 12/27/24 07:54 Constitutional Constitutional: no acute distress Routine HEENT Exam Head: Present normocephalic and atraumatic Eye: Present EOMI and PERRL ENT: Present mucous membranes moist Routine Neck Exam Neck: Present supple and trachea midline Routine Respiratory Exam Respiratory: Present chest non-tender, lungs clear, normal breath sounds and no resp distress Routine Cardiovascular Exam Cardiovascular: Present RRR Routine Abdominal Exam Abdominal: Present soft and normoactive bowel sounds Routine Extremities Exam Extremities: Present full ROM Routine Skin Exam Skin: Present intact, dry and warm Routine Neurological Exam Neurological: Present alert, oriented X3 and CN II-XII intact Routine Psychiatric Exam Psychiatric: Present normal affect and normal thought process Objective Labs 12/27/24 04:48 12/25/24 20:10 Labs: Laboratory Results - last 24 hr 12/27/24 04:48 WBC 13.9 H RBC 3.94 L Hgb 10.8 L Hct 32.8 L MCV 83 MCH 27.4 MCHC 32.9 RDW Std Deviation 44.7 Plt Count 298 Neut % (Auto) 82 H Lymph % (Auto) 11 [place] % (Auto) 4 Eos % (Auto) 0 Baso % (Auto) 0 Neut # (Auto) 11.3 H Lymph # (Auto) 1.6 [place] # (Auto) 0.5 Eos # (Auto) 0.1 Baso # (Auto) 0.0 Immature Gran # (Auto) 0.34 H Absolute Nucleated RBC 0.00 Immature Gran % 3 H Nucleated RBC % 0 Assessment & Plan Problem List (1) Supervision of high risk in third trimester: Status: Acute (2) Morbid obesity with BMI of 50.0-59.9, adult: Status: Acute (3) Grand multiparity: Status: Acute (4) Preeclampsia: Status: Acute (5) Transverse lie of fetus: Status: Acute (6) Advanced maternal age (AMA) in : Status: Acute (7) delivery delivered: Status: Acute Assessment and plan: 1. Continue routine /post-op care 2. Labs reviewed, cbc appropriate 3. Remove dressing/Gatica 4. Encourage to ambulate, shower 5. Encourage PO intake, breast feeding Time Spent With Patient Time: Total time spent is greater than 50% in coordination of care (as documented) at patient's floor/unit and/or counseling patient:
[2024-12-27] MEDS: NIFEdipine 10 MG CAPSULE PO (20:42)
[2024-12-27] MEDS: LABETALOL 100 MG TABLET 200 MG PO (21:15)
[2024-12-28] VITALS (7 sets, daily range): BP systolic 138–155; BP diastolic 80–94; PULSE 80–95; RESP 18–20; TEMP 36.4–37; O2SAT 96–97
[2024-12-28] MEDS: IBUPROFEN TAB 400 MG TABLET 800 MG PO ×2 (04:15→11:57)
--- NOTE | 2024-12-28 07:19 | PD.LDPPPRG ---
Subjective Subjective Interval history: Patient is a 39-year-old G6 now P6006 status post primary with tubal ligation 12/26/2024. Patient's blood pressures have been a little high . She is on labetalol [address] Saenz ordered nifedipine 10 last p.m. The plan is to ambulate today see what her blood pressures do and possible discharge later this afternoon. Her preop and postop labs are stable. She has no complaints. Exam Vital Signs Temp Pulse Resp BP Pulse Ox O2 Del Method 98.1 F 82 18 150/87 H 96 Room Air 12/28/24 04:00 12/28/24 04:00 12/28/24 04:00 12/28/24 04:00 12/28/24 04:00 12/28/24 04:00 Narrative Exam Patient is alert and oriented x 3 in no apparent distress. Fundus is firm. Incision clean dry and intact. Patient has a significant pannus. Extremities show no significant edema or erythema. Objective Labs 12/27/24 04:48 12/25/24 20:10 Assessment & Plan Problem List (1) Supervision of high risk in third trimester: Status: Acute (2) Morbid obesity with BMI of 50.0-59.9, adult: Status: Acute (3) Grand multiparity: Status: Acute (4) Preeclampsia: Status: Acute (5) Transverse lie of fetus: Status: Acute (6) Advanced maternal age (AMA) in : Status: Acute (7) delivery delivered: Status: Acute Assessment and plan: Ambulate, check blood pressures. If elevated add nifedipine orally. Possible discharge later today. Time Spent With Patient Time: Total time spent is greater than 50% in coordination of care (as documented) at patient's floor/unit and/or counseling patient: Time with patient: less than 15 minutes
[2024-12-28] MEDS: DOCUSATE SOD 100 MG CAPSULE PO (08:19)
[2024-12-28] MEDS: LABETALOL 100 MG TABLET 200 MG PO (08:19)
[2024-12-28 08:28] LABS: Basophils # (Auto) 0.1 Thou/mm3 (0.0-0.2); Basophils % (Auto) 0 % (0-2.5); Eosinophils # (Auto) 0.2 Thou/mm3 (0.0-0.5); Eosinophils % (Auto) 1 % (0-10); Hematocrit 33.2 % (36.0-46.0); Hemoglobin 10.9 g/dL (12.0-16.0); Immature Granulocytes % (Auto) 2 % (0-0); Lymphocytes # (Auto) 1.5 Thou/mm3 (1.0-4.8); Lymphocytes % (Auto) 12 % (10-50); Mean Corpuscular HGB Conc 32.8 g/dl (31.0-37.0); Mean Corpuscular Hemoglobin 27.7 pg (25.0-35.0); Mean Corpuscular Volume 85 fL (80-100); Monocytes # (Auto) 0.6 Thou/mm3 (0.0-0.8); Monocytes % (Auto) 5 % (0-12); Neutrophils # (Auto) 9.7 Thou/mm3 (1.8-7.7); Neutrophils % (Auto) 79 % (37-80); Nucleated Red Blood Cell % 0 /100 WBC (0); Platelet Count 306 Thou/mm3 (140-440); RDW Standard Deviation 46.4 fL (36.4-46.3); Red Blood Count 3.93 Miln/mm3 (4.00-5.20); White Blood Count 12.3 Thou/mm3 (3.6-11.0)
--- NOTE | 2024-12-28 16:00 | PC.SS ---
SS introduced self and role. SS asked for permission to speak in front of family.?SS conducted bedside contact with the patient to address nursing referral indicating patient possessed a high score on post depression screening scale.? Patient is Faroese speaking only.? Instrumentation Engineer line used. ?SS discussed with patient basis of referral.? Patient asked her sister to please leave. SS was able to discuss basis of referral was for her scoring higher on the depression screening scale.? ?Patient confirmed she has history of depression with her last child who is 7 years old now.? Patient states she went to [facility] for counseling services at that time. Patient states she was not on medication prior to becoming .? No current psychotropic medication. Patient states now she feels fine. Patient, currently, has no impairments. Patient has no current thoughts of harming herself or others.? No other history of documented mental health. Felix REYNLODS, resides in the home. This is patient?s 6th child. , baby girl, was born this on [birth year]. Patient?s other children in the home are ages: 7, 18, 19, 22, 24 and NB. care was completed with Luba Tao CNM.? Patient was consistent with . Patient plans on breast/bottle feeding. Patient is aligned with [facility]. Patient does is not aligned with [place] assistance or Food stamps. Patient denies history of drug/alcohol abuse, domestic violence. Patient describes possessing positive support from her family. Patient has all resources to include: car seat, infant clothing and supplies.? school services officer provided resources to include:? Parenting Network, Warm Line and community numbers. SS discussed in further detail emotional support and answered all questions appropriately. No further intervention required at this time, social group worker will be available to address any further concerns. SS updated bedside nurse. Patient to discharge home this morning.
[2024-12-28] MEDS: NIFEdipine XL 30 MG TABCR PO (17:54)
--- NOTE | 2024-12-28 18:33 | ESPR_ITS ---
Subjective Subjective Interval history: Patient is a 39-year-old G6 now P6006 postop day #2 status post primary C- section with tubal ligation. The was for elevated blood pressure and transverse lie. Patient is doing well post . I added Procardia 30 XL to her labetalol 200 mg twice daily and patient would like to go home. She has 2 of her daughters and her at bedside patient is resting comfortably with no apparent distress Exam Vital Signs Temp Pulse Resp BP Pulse Ox O2 Del Method 98.6 F 90 20 149/84 H 97 Room Air 12/28/24 15:50 12/28/24 17:54 12/28/24 15:50 12/28/24 17:54 12/28/24 17:53 12/28/24 15:50 Narrative Exam Abdomen soft nontender nondistended fundus is firm incision is clean dry and intact extremities show no significant edema or erythema bilaterally Objective Labs 12/28/24 07:37 12/25/24 20:10 Labs: Laboratory Results - last 24 hr 12/28/24 07:37 WBC 12.3 H RBC 3.93 L Hgb 10.9 L Hct 33.2 L MCV 85 MCH 27.7 MCHC 32.8 RDW Std Deviation 46.4 H Plt Count 306 Neut % (Auto) 79 Lymph % (Auto) 12 [place] % (Auto) 5 Eos % (Auto) 1 Baso % (Auto) 0 Neut # (Auto) 9.7 H Lymph # (Auto) 1.5 [place] # (Auto) 0.6 Eos # (Auto) 0.2 Baso # (Auto) 0.1 Immature Gran # (Auto) 0.30 H Absolute Nucleated RBC 0.00 Immature Gran % 2 H Nucleated RBC % 0 Assessment & Plan Problem List (1) Supervision of high risk in third trimester: Status: Acute (2) Morbid obesity with BMI of 50.0-59.9, adult: Status: Acute (3) Grand multiparity: Problem details: Tubal ligation performed Status: Acute (4) Preeclampsia: Status: Acute Assessment and plan: Patient has resolving preeclampsia. Home on labetalol 200 mg p.o. twice daily and Procardia 30 mg p.o. daily. Follow-up in 1 week with Luba Tao in clinic. Preeclamptic precautions given. Patient does have a blood pressure cuff at home. She will call the office if her blood pressures are in 150s over 90s and we or higher and we will bump up her medication she should go to the ER if her blood pressures are in the 170s over 100s or higher. (5) Transverse lie of fetus: Status: Acute (6) Advanced maternal age (AMA) in : Status: Acute (7) delivery delivered: Problem details: Post op instructions given to patient. Status: Acute Time Spent With Patient Time: Total time spent is greater than 50% in coordination of care (as documented) at patient's floor/unit and/or counseling patient: Time with patient: less than 15 minutes
--- NOTE | 2024-12-28 18:36 | PD.LDDS ---
DS: Providers Provider Date of admission: 12/25/24 20:11 Primary care physician: Physician No Primary/Family Admitting Provider: Jil Collado [facility] ([facility]) Attending Provider on Admission: Addison Vincent MD Consults: 12/26/24 07:33 Referral Routine Comment: 12/26/24 08:56 Referral Routine Comment: Attending Provider on DC: Jil Collado MD ([facility]) Discharging Provider: Jil Collado MD ([facility]) Anticipated date of discharge: 12/28/24 DS: Diagnosis Discharge Diagnosis (1) delivery delivered: Status: Acute Assessment & Plan: Postop instructions given. Wound instructions given. Follow-up in 1 week (2) Morbid obesity with BMI of 50.0-59.9, adult: Status: Acute Assessment & Plan: Okay to walk for exercise. Healthy lifestyle encouraged. Healthy eating encouraged (3) Grand multiparity: Status: Acute Assessment & Plan: Status post bilateral near-total salpingectomies (4) Preeclampsia: Status: Acute Assessment & Plan: Home on labetalol 200 twice daily and Procardia XL 30 mg p.o. daily. Patient to check blood pressure at home. She has a blood pressure cuff. Call the office if her blood pressures are consistently 150s over 90s if her blood pressures are 170s to 180s over 100 she needs to go right to the emergency room. (5) Gestational diabetes: Status: Acute Assessment & Plan: Home on metformin 500 twice daily Problem List Completed Was Problem List Reviewed/Reconciled?: Yes Summary/Hosp Course Brief History: The patient is a 39-year-old -0-0-5 at 37-5/7 weeks with an EDC of 01/12/2025 who started her care at [facility] and transferred to Luba Tao at the [facility] the [place]. Patient presented to triage reporting painful contractions. Her blood pressures were in the 170s over 90s x 2. She was admitted for further evaluation. Preeclamptic labs were normal however the blood pressures only resolved after pushing 20 then 40 of labetalol. The plan was to induce the patient due to elevated blood pressures and morbid obesity with a BMI of 54. An ultrasound was ordered to check position and the baby is in a transverse lie. As patient has -induced hypertension and malpresentation she is consented for a primary low-transverse section. Of note the patient did sign tubal ligation papers in the office and has a family member that would bring them in. She does desire permanent sterilization. The patient underwent an uncomplicated primary low-transverse section with near-total bilateral salpingectomies at around 6:30 in the morning on 12/26/2024. See op report for further details. Her postoperative course was uncomplicated. Patient was started on oral labetalol 200 twice daily on postop day 1. On postoperative day #2 Procardia XL 30 mg was added. Patient's blood pressures were in the 140s over 80s. She was discharged home postoperative day #2 in stable condition. All labs were stable. Peripartum Data Delivery Method: Low Transverse Episiotomy Description: None Procedures: Procedures Operation Date: 12/26/24 06:15 Actual Procedure Side Surgeon p w/tubal OB Not Applicable Jil Collado ([facility])MD Operation Date: 12/26/24 07:45 <No data on this case meets the specified criteria> complications: none Status at Discharge Cognitive/behavioral status at discharge: Patient is alert and oriented x 3 in no apparent distress Functional status at discharge: independent ambulation Overall status at discharge: patient is progressing back to baseline Time Spent with Patient Time attestation: Total time spent providing and/or coordinating discharge services: Time spent: Less than 30 minutes Specific discharge activities: No heavy lifting, strenuous exercise x 2 weeks weeks. Pelvic rest x 6 weeks. No intercourse tampons douching swimming pools or bathtubs x 6 weeks Exam Vital Signs Temp Pulse Resp BP Pulse Ox O2 Del Method 98.6 F 90 20 149/84 H 97 Room Air 12/28/24 15:50 12/28/24 17:54 12/28/24 15:50 12/28/24 17:54 12/28/24 17:53 12/28/24 15:50 Narrative Exam Patient is alert and oriented x 3 resting comfortably in bed. Abdomen: fundus is firm incisions clean dry intact extremities show no significant edema or erythema Discharge Plan Plan Patient Disposition: HOME (Self Care) Disposition Comment: Stable Patient condition on transfer: Stable Prescriptions/Referrals Prescriptions/Med Rec: New nifedipine 30 mg Tablet Extended Release 24hr 30 mg PO QDAY Qty: 30 0RF acetaminophen 325 mg Tablet 650 mg PO Q6HR PRN (Reason: Patient rated pain of 3) Qty: 60 0RF ibuprofen 400 mg Tablet 800 mg PO Q8HR PRN (Reason: Pain Scale 4-6 (Moderate) Qty: 60 0RF docusate sodium 100 mg Capsule 100 mg PO QDAY Qty: 60 0RF labetalol 100 mg Tablet 200 mg PO BID Qty: 60 0RF Continued metformin 500 mg tablet 500 mg PO BID Patient Comments: TOME 1 TABLETA POR V A ORAL DOS VECES AL D A CON LAS COMIDAS multivitamin with folic acid [Daily-Michelle (with folic acid)] 400 mcg tablet 1 tab PO QDAY Patient Comments: TOME 1 TABLETA POR V A ORAL TODOS LOS D FOR 90 DAYS Referrals: [facility]),Jil Vincent MD [Physician] - Luba Tao CNM [Referring Provider] - No Primary/Family,Physician [Primary Care Provider] - Patient/Caregiver Discharge Instructions Discharge Activity: activity as tolerated Other Discharge Activity Instructions:: No heavy lifting, strenuous exercise x 6 weeks. Pelvic rest x 6 weeks. No intercourse, tampons, douching, bathtubs, or swimming pools x 6 weeks. Other Discharge Diet Instructions: Gestational diabetic diet Education Materials: After a , Weight Management: Healthy Eating, Weight Management: Fact and Fiction, : Caring for Yourself, C Section Dc Print Language: [place] Islander Stand Alone Forms: Stephanie Award Info., Patient Portal Info Letter Discharge Order Discharge Orders: Discharge (Routine); Ordered 12/28/24 Ordered By: Jil Collado ([facility]) Planned Discharge Date 12/28/24 (4) Preeclampsia Qualifiers: Trimester: third trimester Qualified Code(s): O14.93 - Unspecified pre-eclampsia, third trimester (5) Gestational diabetes Qualifiers: Gestational diabetes mellitus control: oral hypoglycemic-controlled Trimester: third trimester Qualified Code(s): O24.415 - Gestational diabetes mellitus in , controlled by oral hypoglycemic drugs
== END 2024-12-28 19:13 | disposition home or self-care (01) | DRG 539 ==
LOC: S4NX 12-26 07:44 → S4SX 12-26 07:44
PROVIDERS: Admitting Provider Obstetrics & Gynecology; Visit Provider Specialist
PROC: 0UL70ZZ Occlusion of Bilateral Fallopian Tubes, Open Approach (ICD-10-PCS; CPT 59514; principal; 2024-12-26 06:00)
DX: O14.94 Unspecified pre-eclampsia, complicating childbirth (principal); O99.214 Obesity complicating childbirth; E66.01 Morbid (severe) obesity due to excess calories; Z3A.37 37 weeks gestation of pregnancy; Z37.0 Single live birth; Z30.2 Encounter for sterilization; O32.2XX0 Maternal care for transverse and oblique lie, not applicable or unspecified; O24.429 Gestational diabetes mellitus in childbirth, unspecified control
CPT/HCPCS: 36415; 59025; 59409; 76805; 80053; 81001; 82570; 84156; 84550; 85025; 85384; 85610; 85730; 86780; 86850; 86900; 86901; 94762; A4649; J0689; J1885; J2274; J2371; J2590; J2765; J3010; J3490; A9270; J1920; J2270

== ENCOUNTER 2025-01-04 08:56 | Outpatient (AMB) | payer MEDICAID, SELFPAY ==
[2025-01-04 09:06] VITALS: BP 154/106; PULSE 93; RESP 18; TEMP 36; O2SAT 97
--- NOTE | 2025-01-04 09:06 | AMB.OBPP ---
Vital Signs 01/04/25 09:06 Weight 95.368 kg Weight Measurement Method Standing Scale BP 154/106 H Blood Pressure Source Automatic Cuff Blood Pressure Location Left Upper Arm Position Sitting Respiration 18 Pulse 93 Pulse Source Monitor Temp 96.8 F Temp Source Oral Pulse Oximetry (%) 97 Oxygen Delivery Method Room Air Allergies/Home Meds Allergies & Medications Allergies No Known Allergies Allergy (Verified 01/04/25 09:06) Medication Reconciliation metformin 500 mg tablet 500 mg PO BID GDM 10/31/24 [History Confirmed 01/04/25] multivitamin with folic acid 400 mcg tablet (Daily-Michelle (with folic acid)) 1 tab PO QDAY 10/31/24 [History Confirmed 01/04/25] acetaminophen 325 mg tablet 650 mg (2 x 325 mg) PO Q6HR PRN Patient rated pain of 3 #60 tabs 12/28/24 [Rx Confirmed 01/04/25] docusate sodium 100 mg capsule 100 mg PO QDAY #60 caps 12/28/24 [Rx Confirmed 01/04/25] ibuprofen 400 mg tablet 800 mg (2 x 400 mg) PO Q8HR PRN Pain Scale 4-6 (Moderate #60 tabs 12/28/24 [Rx Confirmed 01/04/25] labetalol 100 mg tablet 200 mg (2 x 100 mg) PO BID #60 tabs 12/28/24 [Rx Confirmed 01/04/25] nifedipine 30 mg tablet,extended release 24 hr 30 mg PO QDAY #30 tabs 12/28/24 [Rx Confirmed 01/04/25] furosemide 20 mg tablet (Lasix) 20 mg PO BID #4 tabs 01/04/25 [Rx] Intake Visit Data Collection New Patient or Established: Established Patient (seen at [facility] within 3 years) Reason for Visit:: POD #9 Primary CS with BTL Seen by Clinical Staff ONLY (RN/MA): No Net Maker Required: Yes Net Maker's name/title: YODIT ARCINIEGA / MEDICAL ASSITANT Do You Feel Safe at Home: Yes Authorities Contacted: N/A PCP or OBGYN visit in last 3 months: Yes Date of Last PCP or OBGYN visit: 12/28/24 Hx Now: No Are you currently on any form of Control: No Pain Present Currently: Yes Pain Location: Frontal Pain Scale Used: [place]-Segovia/Numerical Pain scale:: 9 Smoking Status Smoking Status: 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 BAKER HEAD: Past Medical History Past Medical History: No Hx Neurological Disorders, No Hx Breast Cancer, Yes Hx Cardiac Disorders (ELEVATED BP'S WITH THIS ), No Hx Cancer, Yes Hx Blood Disorders, Yes Hx Anemia, No Hx Gastrointestinal Disorders, No Hx Renal Disease, No Hx Diabetes Mellitus Type 1 and No Hx Diabetes Mellitus Type 2 Questionnaires Covid-19 Vaccine Questionnaire Has patient been vacinated for Covid-19 Have you been vacinated for Covid-19: Yes Social History Living Situation History Marital Status: Lives With: Family Housing: House Tobacco History Smoking Status: 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 Second Hand Smoke Exposure: No Alcohol History Alcohol Intake: Never Domestic Abuse History Do You Feel Safe at Home: Yes EPDS - PP Depression Screening [place] Pospartum Depression Screen I have been able to laugh and see the funny side of things: (0) As much as I always could I have looked forward with enjoyment to things: (0) As much as I ever did I have blamed myself unnecessarily when things went wrong: (0) No, never I have been anxious or worried for no good reason: (0) No, not at all I have felt scared or panicky for no very good reason: (0) No, not at all Things have been getting on top of me: (0) No, I have been coping as well as ever I have been so unhappy that I have had difficulty sleeping: (0) No, not at all I have felt sad or miserable: (0) No, not at all I have been so unhappy that I have been crying: (0) No, never The thought of harming myself has occurred to me: (0) Never Total Score: EPDS Score: Referral is indicated for score of 9 or more, suicidal, or if provider believes patient is depressed regardless of score.: 0 EPDS completed yes Care OB Visit Log OB Flowsheet Initial Weight: Not Recorded Date <del>?</del> EGA Weight BP Alb Glu CTX Pres Fundal ht FHR Mov Dilation Station Effacement Hx Notes Visit Note 12/22/24 <del>?</del> 37w 0d 105.29 kg 164/91 absent cephalic 39 156 active 39-year-old 6 para 5 for first OB appointment. Patient is a transfer care from [facility]. History of diabetes with this . Patient is been taking metformin 500 twice daily with good compliance. Patient had good compliance with her diet. Patient reports that she checks her sugars 4 times a day. Fastings have been all below 100. And she reports that she is at goal about 90% of the time. Compliant with weekly NST BPP. Patient has a history biggest baby being 9 pounds 12. She states this baby is just as big. Denies any PIH complaints at this time. Blood pressure today 164/91 and then she had at 150/90. Reports good movement. No leaking or bleeding. So I directed patient to go to labor and delivery for PIH workup at this time. Medical release has been filled out at [employer] for records. 39-year-old 6 para 5 for first OB appointment. Patient is a transfer care from [facility]. History of diabetes with this . Patient is been taking metformin 500 twice daily with good compliance. Patient had good compliance with her diet. Patient reports that she checks her sugars 4 times a day. Fastings have been all below 100. And she reports that she is at goal about 90% of the time. Compliant with weekly NST BPP. Patient has a history biggest baby being 9 pounds 12. She states this baby is just as big. Denies any PIH complaints at this time. Blood pressure today 164/91 and then she had at 150/90. Reports good movement. No leaking or bleeding. So I directed patient to go to labor and delivery for PIH workup at this time. Medical release has been filled out at [employer] for records. Labor precautions and kick count twice a day discussed. JOSEMANUEL Calculator Estimated Delivery Date Method Current WG Current Estimate 01/12/25 LMP (Certain) 39w 5d Notes Visit Date: 12/22/24 Last Updated by: JHONATAN Hodges^p5, 37w2. lmp 04/07/25. EDC 01/10/25. GDM on metformin, week NST/BPP HPI Interval History: the patient is a 39-year-old G6 now P6006 status post primary 12/26/2024 for transverse lie with elevated blood pressure. We also did a BTL. Patient went home on labetalol 200 twice a day and Procardia XL 30 a day. She states she has a headache today. Her blood pressures elevated in the 150s over 100 today. She states this is higher than it has been. She has been checking it at home on a blood pressure cuff. She also reports a little bit of swelling in her hands and feet. She is bottlefeeding. She denies any problems with depression no fevers chills no heavy vaginal bleeding. Was or delivery considered high risk: Yes Delivery type: Was labor induced: no Gestational age at delivery (weeks): 37 Delivery date: 12/26/24 Delivering provider: DR MARIE Delivery complications: No Delivery complications comment: PER PATEINT NO COMPLICATIONS Is patient : No Is patient sexually active: No Contraception planned: PATIENT HAD A TUBAL LIGATION DURING Review of Systems Review of Systems ROS limited to current BAKER HEAD complaints: Yes Narrative Review of Systems: Patient still has moderate lochia. No heavy vaginal bleeding. No fevers chills. No shortness of breath. No right upper quadrant pain. She is swollen especially in her lower extremities and is complaining of headaches. No changes in vision. Exam General General Appearance: alert, in no apparent distress, comfortable, cooperative, obese and other (Appears tired) Abdominal Abdominal exam: Present soft, incision (Incision clean dry and intact) and other (Fundus firm at umbilicus) Extremities Extremities exam: Present pedal edema (1+ pedal edema, no erythema.) Office Procedures OB Clinic LOC & Office Proc's Nursing/Assessment Patient Status: Established Patient OB Clinic Nursing Assessment: BP Monitoring, Medication Reconciliation, Update PMH in EMR and Vital Signs OB Clinic Coordination of Care: Consent,records obtained, informed consent, Education Simp Pt/Fam, Results/Orders obtained and Staff clarify orders Established Patient Charge Established Patient Point Assignment: 80 Established Patient Point Charge: EP Level 3 (80-115) Post Follow-up Visit Post Follow up Visit: Yes Assessment & Plan Diagnosis / Problem List (1) delivery delivered: Status: Acute Assessment and Plan: No heavy lifting intercourse tampons or douching for 4-5 more weeks (2) Morbid obesity with BMI of 50.0-59.9, adult: Status: Acute Assessment and Plan: Continue with ambulation and medications. (3) Grand multiparity: Status: Acute Assessment and Plan: Tubal ligation performed (4) Preeclampsia: Status: Acute Qualifiers: Trimester: third trimester Qualified Code(s): O14.93 - Unspecified pre-eclampsia, third trimester Assessment and Plan: Lasix 20 mg p.o. twice daily x 2 days ordered. Increase labetalol to 300 twice daily. Follow-up with week. Go to the ER if very severe headaches changes in vision or right upper quadrant pain occur. Care Reviewed delivery summary and any complications: Yes Perineal / incision healing noted: Yes Screened for depression: No Depression counseling provided: No Discussed family planning & contraception: Yes Contraception planned: PATIENT HAD A TUBAL LIGATION DURING Counseling on safe resumption of sexual activity: No Counseling on gradual excercise: No Discussed and concerns (describe), provided support: No Referred to entry specialists: No Counseled on good nutrition, hydration, and self care: Yes Reviewed vaccine status: No Chronic & current problems reconciled on problem list: No Additional follow up plans: Follow-up in 1 week care discussed; questions answered: feeding and sleep Follow up: BP check Additional counseling & anticipatory guidance provided: Follow-up in 1 week for blood pressure check. Patient is only 10 days and her entire visit was not performed today.
== END 2025-01-04 09:41 | disposition home or self-care (01) ==
LOC: HODSOBC 08:56
PROVIDERS: Supervising Provider Obstetrics & Gynecology; Visit Provider Obstetrics & Gynecology
DX: Z39.2 Encounter for routine postpartum follow-up (principal); O14.95 Unspecified pre-eclampsia, complicating the puerperium; O24.435 Gestational diabetes mellitus in puerperium, controlled by oral hypoglycemic drugs; O99.215 Obesity complicating the puerperium; E66.01 Morbid (severe) obesity due to excess calories; Z98.51 Tubal ligation status; Z79.899 Other long term (current) drug therapy
CPT/HCPCS: 59430; 99213; G0463

== ENCOUNTER 2025-01-11 09:27 | Outpatient (AMB) | payer MEDICAID, SELFPAY ==
--- NOTE | 2025-01-11 09:33 | AMB.OBPP ---
Vital Signs 01/11/25 09:46 Height 1.52 m Height Method Stated Weight 94.461 kg Weight Measurement Method Standing Scale BMI 40.6 BP 139/92 H Blood Pressure Source Automatic Cuff Blood Pressure Location Right Upper Arm Position Sitting Respiration 17 Pulse 78 Pulse Source Monitor Temp 97.9 F Temp Source Temporal Artery Scan Pulse Oximetry (%) 96 Oxygen Delivery Method Room Air Allergies/Home Meds Allergies & Medications Allergies No Known Allergies Allergy (Verified 01/11/25 09:47) Medication Reconciliation metformin 500 mg tablet 500 mg PO BID GDM 10/31/24 [History Confirmed 01/11/25] multivitamin with folic acid 400 mcg tablet (Daily-Michelle (with folic acid)) 1 tab PO QDAY 10/31/24 [History Confirmed 01/11/25] docusate sodium 100 mg capsule 100 mg PO QDAY #60 caps 12/28/24 [Rx Confirmed 01/11/25] ibuprofen 400 mg tablet 800 mg (2 x 400 mg) PO Q8HR PRN Pain Scale 4-6 (Moderate #60 tabs 12/28/24 [Rx Confirmed 01/11/25] labetalol 100 mg tablet 200 mg (2 x 100 mg) PO BID #60 tabs 12/28/24 [Rx Confirmed 01/11/25] nifedipine 30 mg tablet,extended release 24 hr 30 mg PO QDAY #30 tabs 12/28/24 [Rx Confirmed 01/11/25] furosemide 20 mg tablet (Lasix) 20 mg PO BID #4 tabs 01/04/25 [Rx Confirmed 01/11/25] Intake Visit Data Collection New Patient or Established: Established Patient (seen at [facility] within 3 years) Reason for Visit:: [facility] Seen by Clinical Staff ONLY (RN/MA): No Production Hardener Required: No Do You Feel Safe at Home: Yes Authorities Contacted: N/A PCP or OBGYN visit in last 3 months: Yes Date of Last PCP or OBGYN visit: 01/04/25 Hx Now: No Are you currently on any form of Control: No Pain Present Currently: Yes Pain Location: Abdomen Pain Scale Used: Burleson-Segovia/Numerical Pain scale:: 4 Smoking Status Smoking Status: 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 RN TELEPHONIC: Past Medical History Past Medical History: No Hx Neurological Disorders, No Hx Breast Cancer, Yes Hx Cardiac Disorders (ELEVATED BP'S WITH THIS ), No Hx Cancer, Yes Hx Blood Disorders, Yes Hx Anemia, No Hx Gastrointestinal Disorders, No Hx Renal Disease, No Hx Diabetes Mellitus Type 1 and No Hx Diabetes Mellitus Type 2 Questionnaires Covid-19 Vaccine Questionnaire Has patient been vacinated for Covid-19 Have you been vacinated for Covid-19: Yes Social History Living Situation History Lives With: Family Housing: House Tobacco History Smoking Status: 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 Second Hand Smoke Exposure: No Alcohol History Alcohol Intake: Never Domestic Abuse History Do You Feel Safe at Home: Yes EPDS - PP Depression Screening [place] Pospartum Depression Screen I have been able to laugh and see the funny side of things: (1) Not quite so much now I have looked forward with enjoyment to things: (3) Hardly at all I have blamed myself unnecessarily when things went wrong: (3) Yes, most of the time I have been anxious or worried for no good reason: (3) Yes, very often I have felt scared or panicky for no very good reason: (3) Yes, quite a lot Things have been getting on top of me: (2) Yes, sometimes I haven't been coping as well as usual I have been so unhappy that I have had difficulty sleeping: (0) No, not at all I have felt sad or miserable: (3) Yes, most of the time I have been so unhappy that I have been crying: (2) Yes, quite often The thought of harming myself has occurred to me: (0) Never Total Score: EPDS Score: Referral is indicated for score of 9 or more, suicidal, or if provider believes patient is depressed regardless of score.: 20 EPDS completed yes Care OB Visit Log OB Flowsheet Initial Weight: Not Recorded Date <del>?</del> EGA Weight BP Alb Glu CTX Pres Fundal ht FHR Mov Dilation Station Effacement Hx Notes Visit Note 12/22/24 <del>?</del> 37w 0d 105.29 kg 164/91 absent cephalic 39 156 active 39-year-old 6 para 5 for first OB appointment. Patient is a [facility]. History of diabetes with this . Patient is been taking metformin 500 twice daily with good compliance. Patient had good compliance with her diet. Patient reports that she checks her sugars 4 times a day. Fastings have been all below 100. And she reports that she is at goal about 90% of the time. Compliant with weekly NST BPP. Patient has a history biggest baby being 9 pounds 12. She states this baby is just as big. Denies any PIH complaints at this time. Blood pressure today 164/91 and then she had at 150/90. Reports good movement. No leaking or bleeding. So I directed patient to go to labor and delivery for PIH workup at this time. Medical release has been filled out at [facility] for records. 39-year-old 6 para 5 for first OB appointment. Patient is a transfer care [facility]. History of diabetes with this . Patient is been taking metformin 500 twice daily with good compliance. Patient had good compliance with her diet. Patient reports that she checks her sugars 4 times a day. Fastings have been all below 100. And she reports that she is at goal about 90% of the time. Compliant with weekly NST BPP. Patient has a history biggest baby being 9 pounds 12. She states this baby is just as big. Denies any PIH complaints at this time. Blood pressure today 164/91 and then she had at 150/90. Reports good movement. No leaking or bleeding. So I directed patient to go to labor and delivery for PIH workup at this time. Medical release has been filled out at [facility] for records. Labor precautions and kick count twice a day discussed. JOSEMANUEL Calculator Estimated Delivery Date Method Current WG Current Estimate 01/12/25 LMP (Certain) 39w 6d Notes Visit Date: 12/22/24 Last Updated by: Luba Tao CNM G^p5, 37w2. lmp 04/07/25. EDC 01/10/25. GDM on metformin, week NST/BPP HPI Interval History: The patient is a 40-year-old G6 now P6006 status post primary low-transverse section 12/26/2024 for high blood pressure and transverse lie. Patient is French-speaking only and presents with her daughter. Of note she did have a tubal ligation with her . She had preeclampsia on admission and I saw her about a week ago and her blood pressure was still elevated. We currently have her on labetalol 300 mg p.o. twice daily Procardia XL 30 daily she also took Lasix 20 for about 3 days. Patient now states that she feels better no headaches no changes in vision and she states her legs are less swollen. Her blood pressure today is 139/92. Her lochia is mild and she has no pain she states that in the afternoon sometimes she gets sad and cries but this is not on all day thing. We did discuss medication and patient is declining at this time. Her daughter will keep an eye on her. I did recommend moderate exercise and walking to help with mood. If she gets worse in any way she is to call and we can see her sooner. The plan will be to follow-up in 2 weeks for blood pressure check. Was or delivery considered high risk: Yes Delivery type: Was labor induced: no Gestational age at delivery (weeks): 37 Delivery date: 12/26/24 Delivering provider: Dr. Rukhsana Collado Delivery complications: No Is patient : No Is patient sexually active: No Contraception planned: Patient had a tubal ligation Exam Narrative Physical exam: Patient is alert and oriented x 3 in no apparent distress. Abdomen is soft nontender incision is healing nicely and is clean dry and intact Office Procedures OB Clinic LOC & Office Proc's Nursing/Assessment Patient Status: Established Patient OB Clinic Nursing Assessment: Medication Reconciliation, Update PMH in EMR and Vital Signs OB Clinic Coordination of Care: Complex Care and Chronic Disease 1-5, Consent,records obtained, informed consent, Education Simp Pt/Fam and Staff clarify orders Established Patient Charge Established Patient Point Assignment: 85 Established Patient Point Charge: EP Level 3 (80-115) Post Follow-up Visit Post Follow up Visit: Yes Assessment & Plan Diagnosis / Problem List (1) delivery delivered: Status: Acute (2) Supervision of high risk in third trimester: Status: Acute (3) Grand multiparity: Status: Acute (4) Preeclampsia: Status: Acute Qualifiers: Trimester: third trimester Qualified Code(s): O14.93 - Unspecified pre-eclampsia, third trimester Care Reviewed delivery summary and any complications: Yes Perineal / incision healing noted: Yes Screened for depression: Yes Depression counseling provided: Yes Discussed family planning & contraception: No Contraception planned: Patient had a tubal ligation Counseling on safe resumption of sexual activity: No Counseling on gradual excercise: Yes Discussed and concerns (describe), provided support: No Referred to home mortgage disclosure act specialist: No Counseled on good nutrition, hydration, and self care: Yes Reviewed vaccine status: No Chronic & current problems reconciled on problem list: Yes Additional follow up plans: Follow-up for blood pressure check in 2 weeks. Follow up: BP check Additional counseling & anticipatory guidance provided: Call for signs of severe preeclampsia heavy bleeding or headaches not responsive to Tylenol.
[2025-01-11 09:46] VITALS: BP 139/92; PULSE 78; RESP 17; TEMP 36.6; O2SAT 96; BMI 40.6
== END 2025-01-11 10:43 | disposition home or self-care (01) ==
LOC: HODSOBC 09:27
PROVIDERS: PCP Obstetrics & Gynecology; Referring Provider Obstetrics & Gynecology; Supervising Provider Obstetrics & Gynecology; Visit Provider Obstetrics & Gynecology
DX: Z39.2 Encounter for routine postpartum follow-up (principal)
CPT/HCPCS: 99213; G0463

== ENCOUNTER 2025-01-25 09:14 | Outpatient (AMB) | payer MEDICAID, SELFPAY ==
--- NOTE | 2025-01-25 09:30 | AMBOBPPN_ITS ---
Vital Signs 01/25/25 09:34 Height 1.52 m Height Method Stated Weight 96.332 kg Weight Measurement Method Standing Scale BMI 41.4 BP 158/91 H Blood Pressure Source Automatic Cuff Blood Pressure Location Right Upper Arm Position Sitting Respiration 17 Pulse 67 Pulse Source Monitor Temp 97.5 F Temp Source Temporal Artery Scan Pulse Oximetry (%) 96 Oxygen Delivery Method Room Air Allergies/Home Meds Allergies & Medications Allergies No Known Allergies Allergy (Verified 01/25/25 09:35) Medication Reconciliation metformin 500 mg tablet 500 mg PO BID GDM 10/31/24 [History Confirmed 01/25/25] fluconazole 150 mg tablet 150 mg PO QDAY #1 tab 01/25/25 [Rx] labetalol 300 mg tablet 300 mg PO DAILY #30 tabs 01/25/25 [Rx] nifedipine 30 mg tablet,extended release 24 hr 30 mg PO QDAY #30 tabs 01/25/25 [Rx] nystatin 100,000 unit/gram topical powder 1 applic topical TID #30 grams 01/25/25 [Rx] Intake Visit Data Collection New Patient or Established: Established Patient (seen at [facility] within 3 years) Reason for Visit:: Follow-up on elevated blood pressure 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 Do You Feel Safe at Home: Yes Authorities Contacted: N/A PCP or OBGYN visit in last 3 months: Yes Date of Last PCP or OBGYN visit: 01/11/25 Hx Now: No Pain Present Currently: No Pain Scale Used: Burleson-Segovia/Numerical Pain scale:: 0 Smoking Status Smoking Status: 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 Past Medical History: No Hx Neurological Disorders, No Hx Breast Cancer, Yes Hx Cardiac Disorders (ELEVATED BP'S WITH THIS ), No Hx Cancer, Yes Hx Bl ood Disorders, Yes Hx Anemia, No Hx Gastrointestinal Disorders, No Hx Renal Disease, No Hx Diabetes Mellitus Type 1 and No Hx Diabetes Mellitus Type 2 Questionnaires Covid-19 Vaccine Questionnaire Has patient been vacinated for Covid-19 Have you been vacinated for Covid-19: No Social History Living Situation History Marital Status: Lives With: Family Housing: House Tobacco History Smoking Status: 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 Second Hand Smoke Exposure: No Alcohol History Alcohol Intake: Never Domestic Abuse History Do You Feel Safe at Home: Yes EPDS - PP Depression Screening Lena Pospartum Depression Screen I have been able to laugh and see the funny side of things: (1) Not quite so much now I have looked forward with enjoyment to things: (1) Rather less than I used to I have blamed myself unnecessarily when things went wrong: (2) Yes, some of the time I have been anxious or worried for no good reason: (0) No, not at all I have felt scared or panicky for no very good reason: (2) Yes, sometimes Things have been getting on top of me: (2) Yes, sometimes I haven't been coping as well as usual I have been so unhappy that I have had difficulty sleeping: (0) No, not at all I have felt sad or miserable: (2) Yes, quite often I have been so unhappy that I have been crying: (2) Yes, quite often The thought of harming myself has occurred to me: (0) Never Total Score: EPDS Score: Referral is indicated for score of 9 or more, suicidal, or if provider believes patient is depressed regardless of score.: 12 EPDS completed yes Care OB Visit Log OB Flowsheet Initial Weight: Not Recorded Date -?-?-?-?-?-?-?-?-?-?-?-?- EGA Weight BP Alb Glu CTX Pres Fundal ht FHR Mov Dilation Station Effacement Hx Notes Visit Note 12/22/24 -?-?-?-?-?-?-?-?-?-?-?-?- 37w 0d 105.29 kg 164/91 absent cephalic 39 156 active 39-year-old 6 para 5 for first OB appointment. Patient is a transfer care from [facility]. History of diabetes with this . Patient is been taking metformin 500 twice daily with good compliance. Patient had good compliance with her diet. Patient reports that she checks her sugars 4 times a day. Fastings have been all below 100. And she reports that she is at goal about 90% of the time. Compliant with weekly NST BPP. Patient has a history biggest baby being 9 pounds 12. She states this baby is just as big. Denies any PIH complaints at this time. Blood pressure today 164/91 and then she had at 150/90. Reports good movement. No leaking or bleeding. So I directed patient to go to labor and delivery for PIH workup at this time. Medical release has been filled out at [facility] [employer] work for records. 39-year-old 6 para 5 for first OB appointment. Patient is a transfer care from [facility]. History of diabetes with this . Patient is been taking metformin 500 twice daily with good compliance. Patient had good compliance with her diet. Patient reports that she checks her sugars 4 times a day. Fastings have been all below 100. And she reports that she is at goal about 90% of the time. Compliant with weekly NST BPP. Patient has a history biggest baby being 9 pounds 12. She states this baby is just as big. Denies any PIH complaints at this time. Blood pressure today 164/91 and then she had at 150/90. Reports good movement. No leaking or bleeding. So I directed patient to go to labor and delivery for PIH workup at this time. Medical release has been filled out at [facility] [employer] work for records. Labor precautions and kick count twice a day discussed. JOSEMANUEL Calculator Estimated Delivery Date Method Current WG Current Estimate 01/12/25 LMP (Certain) 41w 6d Notes Visit Date: 12/22/24 Last Updated by: Luba Tao CNM G^p5, 37w2. lmp 04/07/25. EDC 01/10/25. GDM on metformin, week NST/BPP HPI Interval History: Patient is a 40-year-old G6 now P6006 status post primary with tubal ligation 12/26/2024 for elevated blood pressures and T lie. 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 Her daughter states she ran out of blood pressure medications. Her blood pressure is elevated today in the office at 158/91 but patient states she only has a slight headache she was on 300 labetalol twice a day and Procardia XL 30 daily and she has been off her meds for about a week. Patient stated that she tried to call the office and cannot get her medication refilled. The baby is also present. Patient delivered about 4 weeks ago. The plan will be to refill her Procardia XL 30 and her labetalol 300 and have her follow-up in 2 more weeks she denies heavy bleeding depression fevers chills or any other postop complications she is mostly here to sort out her blood pressure Was or delivery considered high risk: Yes Delivery type: Was labor induced: no Gestational age at delivery (weeks): 37 Delivery date: 12/26/24 Delivering provider: Dr Rukhsana Collado Delivery complications: No Is patient infant: No Is patient sexually active: No Contraception planned: Patient had a tubal ligation Exam Narrative Physical exam: Incision clean dry and intact with the exception of the left lower quadrant where there is a little yeast cellulitis about 3 x 2 cm. Fundus is firm extremities show no cyanosis, edema General Limitations: no limitations General Appearance: alert, in no apparent distress, comfortable, cooperative and well groomed Office Procedures OB Clinic LOC & Office Proc's Nursing/Assessment Patient Status: Established Patient OB Clinic Nursing Assessment: Medication Reconciliation, Update PMH in EMR and Vital Signs OB Clinic Coordination of Care: Complex Care and Chronic Disease 1-5, Consent,records obtained, informed consent, Education Simp Pt/Fam and Staff clarify orders Established Patient Charge Established Patient Point Assignment: 85 Established Patient Point Charge: EP Level 3 (80-115) Assessment & Plan Diagnosis / Problem List (1) delivery delivered: Status: Acute Assessment and Plan: Continued pelvic rest x 2 more weeks continued no intercourse heavy lifting tampons douching for cysts total of 2 more weeks (2) Grand multiparity: Status: Acute Assessment and Plan: Status post tubal ligation (3) Preeclampsia: Status: Acute Qualifiers: Trimester: third trimester Qualified Code(s): O14.93 - Unspecified pre- eclampsia, third trimester Assessment and Plan: The patient's blood pressure is normalizing. Back down labetalol to 300 daily and Procardia XL 30 daily Care Reviewed delivery summary and any complications: Yes Uterus involuted to: 15-week size Perineal / incision healing noted: Yes Screened for depression: Yes Depression counseling provided: No Discussed family planning & contraception: No Contraception planned: Patient had a tubal ligation Counseling on safe resumption of sexual activity: No Counseling on gradual excercise: Yes Discussed and concerns (describe), provided support: No Referred to destination specialist: No Counseled on good nutrition, hydration, and self care: Yes Reviewed vaccine status: No Chronic & current problems reconciled on problem list: No Additional follow up plans: Follow-up in 2 weeks Infant care discussed; questions answered: feeding Follow up: BP check
[2025-01-25 09:34] VITALS: BP 158/91; PULSE 67; RESP 17; TEMP 36.4; O2SAT 96; BMI 41.4
== END 2025-01-25 10:17 | disposition home or self-care (01) ==
LOC: HODSOBC 09:14
PROVIDERS: PCP Obstetrics & Gynecology; Referring Provider Obstetrics & Gynecology; Supervising Provider Obstetrics & Gynecology; Visit Provider Obstetrics & Gynecology
DX: Z39.2 Encounter for routine postpartum follow-up (principal); O86.09 Infection of obstetric surgical wound, other surgical site; L03.311 Cellulitis of abdominal wall; O14.95 Unspecified pre-eclampsia, complicating the puerperium; Z98.51 Tubal ligation status; Z79.899 Other long term (current) drug therapy; Z75.8 Other problems related to medical facilities and other health care
CPT/HCPCS: 99213; G0463

== ENCOUNTER 2025-02-14 14:06 | Outpatient (AMB) | payer MEDICAID, SELFPAY ==
[2025-02-14 14:31] VITALS: BP 145/93; PULSE 76; RESP 17; TEMP 36.7; O2SAT 97; BMI 41.2
--- NOTE | 2025-02-14 14:31 | AMBOBPPN_ITS ---
Vital Signs 02/14/25 14:31 Height 1.52 m Height Method Measured Weight 95.765 kg Weight Measurement Method Standing Scale BMI 41.2 BP 145/93 H Blood Pressure Source Automatic Cuff Blood Pressure Location Right Upper Arm Position Sitting Respiration 17 Pulse 76 Pulse Source Monitor Temp 98.0 F Temp Source Temporal Artery Scan Pulse Oximetry (%) 97 Oxygen Delivery Method Room Air Allergies/Home Meds Allergies & Medications Allergies No Known Allergies Allergy (Verified 02/14/25 14:33) Medication Reconciliation metformin 500 mg tablet 500 mg PO BID GDM 10/31/24 [History Confirmed 02/14/25] fluconazole 150 mg tablet 150 mg PO QDAY #1 tab 01/25/25 [Rx Confirmed 02/14/25] labetalol 300 mg tablet 300 mg PO DAILY #30 tabs 01/25/25 [Rx Confirmed 02/14/25] nifedipine 30 mg tablet,extended release 24 hr 30 mg PO QDAY #30 tabs 01/25/25 [Rx Confirmed 02/14/25] nystatin 100,000 unit/gram topical powder 1 applic topical TID #30 grams 01/25/25 [Rx Confirmed 02/14/25] Intake Visit Data Collection New Patient or Established: Established Patient (seen at [facility] within 3 years) Reason for Visit:: FOLLOW UP Consent obtained for Telemed Visit: No Seen by Clinical Staff ONLY (RN/MA): No 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 Do You Feel Safe at Home: Yes Authorities Contacted: N/A PCP or OBGYN visit in last 3 months: Yes Date of Last PCP or OBGYN visit: 01/25/25 Hx Now: No Are you currently on any form of Control: No Pain Present Currently: No Pain Scale Used: Burleson-Segovia/Numerical Pain scale:: 0 Smoking Status Smoking Status: 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 [place] Tobacco History Smoking Status: 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 Second Hand Smoke Exposure: No Alcohol History Alcohol Intake: Never Domestic Abuse History Do You Feel Safe at Home: Yes EPDS - PP Depression Screening Nettie Pospartum Depression Screen I have been able to laugh and see the funny side of things: (1) Not quite so much now I have looked forward with enjoyment to things: (2) Definitely less than I used to I have blamed myself unnecessarily when things went wrong: (2) Yes, some of the time I have been anxious or worried for no good reason: (2) Yes, sometimes I have felt scared or panicky for no very good reason: (2) Yes, sometimes Things have been getting on top of me: (2) Yes, sometimes I haven't been coping as well as usual I have been so unhappy that I have had difficulty sleeping: (2) Yes, sometimes I have felt sad or miserable: (2) Yes, quite often I have been so unhappy that I have been crying: (3) Yes, most of the time The thought of harming myself has occurred to me: (0) Never Total Score: EPDS Score: Referral is indicated for score of 9 or more, suicidal, or if provider believes patient is depressed regardless of score.: 18 EPDS completed yes Care OB Visit Log OB Flowsheet Initial Weight: Not Recorded Date -?-?-?-?-?-?-?-?-?-?-?-?- EGA Weight BP Alb Glu CTX Pres Fundal ht FHR Mov Dilation Station Effacement Hx Notes Visit Note 12/22/24 -?-?-?-?-?-?-?-?-?-?-?-?- 37w 0d 105.29 kg 164/91 absent cephalic 39 156 active 39-year-old 6 para 5 for first OB appointment. Patient is a transfer care from [facility]. History of diabetes with this . Patient is been taking metformin 500 twice daily with good compliance. Patient had good compliance with her diet. Patient reports that she checks her sugars 4 times a day. Fastings have been all below 100. And she reports that she is at goal about 90% of the time. Compliant with weekly NST BPP. Patient has a history biggest baby being 9 pounds 12. She states this baby is just as big. Denies any PIH complaints at this time. Blood pressure today 164/91 and then she had at 150/90. Reports good movement. No leaking or bleeding. So I directed patient to go to labor and delivery for PIH workup at this time. Medical release has been filled out at [employer] work for records. 39-year-old 6 para 5 for first OB appointment. Patient is a transfer care from [facility]. History of diabetes with this . Patient is been taking metformin 500 twice daily with good compliance. Patient had good compliance with her diet. Patient reports that she checks her sugars 4 times a day. Fastings have been all below 100. And she reports that she is at goal about 90% of the time. Compliant with weekly NST BPP. Patient has a history biggest baby being 9 pounds 12. She states this baby is just as big. Denies any PIH complaints at this time. Blood pressure today 164/91 and then she had at 150/90. Reports good movement. No leaking or bleeding. So I directed patient to go to labor and delivery for PIH workup at this time. Medical release has been filled out at [email or web address] for records. Labor precautions and kick count twice a day discussed. JOSEMANUEL Calculator Estimated Delivery Date Method Current WG Current Estimate 01/12/25 LMP (Certain) 45w 2d Notes Visit Date: 12/22/24 Last Updated by: Luba Tao CNM G^p5, 37w2. lmp 04/07/25. EDC 01/10/25. GDM on metformin, week NST/BPP HPI Interval History: The patient is a 40-year-old G6 now P6006 status post primary 12/26/2024 by myself for transverse lie and chronic hypertension. She is 6 to 7 weeks postop now .The patient had been seeing [facility] and tr ansferred to Luba Tao for 1 or 2 appointments prior to delivery. She is Yakut-speaking only and is present with her daughter who speaks Fijian. Her daughter is 17. She states that she is crying most days and she is feeling depressed. We did discuss medication and she declines. She does want to go to counseling. She wonders if she can extend her disability. 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 The baby is with her today. She is bottlefeeding. The patient is still on labetalol 300 3 times daily and Procardia XL 30 daily. She would like to be referred to a counselor. We will arrange for her to go to [facility] to discuss depression. She denies any suicidal or homicidal ideation. Was or delivery considered high risk: Yes Delivery type: Was labor induced: no Gestational age at delivery (weeks): 37 Delivery date: 12/26/24 Delivering provider: Dr. Rukhsana Collado Delivery complications: No Is patient : No Is patient sexually active: No Contraception planned: Had tubal ligation Review of Systems Review of Systems ROS limited to current REFRIGERATION PERSON complaints: Yes Narrative Review of Systems: No headaches or changes in vision. No right upper quadrant pain. She just started a menstrual cycle and was normal for her. No heavy bleeding. No fevers or chills. No abnormal discharge. Patient does report crying frequently and feeling depressed most days. She feels sluggish and does not want to do her normal activities. The patient's daughter is present and attests that her mom seems quite sad. She denies feelings of self harm or wanting to harm other people or the baby. Exam General General Appearance: alert, in no apparent distress, comfortable, cooperative, healthy appearing, well groomed and other (A little tearful in the office) Neck Neck exam: Present normal inspection, full ROM and trachea midline Chest Chest inspection: Present normal inspection and symmetric chest wall rise Resp Respiratory exam: Present normal lung sounds bilaterally Card Cardiovascular exam: Present regular rate, normal rhythm and normal heart sounds Abdominal Abdominal exam: Present soft, normal bowel sounds and scar (Well-healed Pfannenstiel incision noted) Extremities Extremities exam: Present normal inspection (No edema or erythema) Skin Skin exam: Present warm, dry, intact and normal color Office Procedures OB Clinic LOC & Office Proc's Nursing/Assessment Patient Status: Established Patient OB Clinic Nursing Assessment: Medication Reconciliation, Update PMH in EMR and Vital Signs OB Clinic Coordination of Care: Complex Care and Chronic Disease 1-5, Consent,r ecords obtained, informed consent, 4+ Authorizations needed and Staff clarify orders Established Patient Charge Established Patient Point Assignment: 95 Post Follow-up Visit Post Follow up Visit: Yes Assessment & Plan Diagnosis / Problem List (1) Post depression: Status: Acute Assessment and Plan: Declined medication. Referral to [facility]. (2) delivery delivered: Status: Acute Assessment and Plan: Patient can go back to all normal activity as tolerated including exercise and intercourse. (3) Grand multiparity: Status: Acute Assessment and Plan: Status post tubal ligation (4) Hypertension affecting : Status: Acute Qualifiers: Trimester: third trimester Qualified Code(s): O16.3 - Unspecified maternal hypertension, third trimester Plan Continue labetalol 300 3 times daily and Procardia XL 30 daily. Referred to the resident clinic for further management. Care Reviewed delivery summary and any complications: Yes Uterus involuted to: 6 weeks Perineal / incision healing noted: Yes Screened for depression: Yes Depression counseling provided: Yes Discussed family planning & contraception: No Contraception planned: Had tubal ligation Counseling on safe resumption of sexual activity: Yes Counseling on gradual excercise: Yes Discussed and concerns (describe), provided support: No Referred to cash specialist: No Counseled on good nutrition, hydration, and self care: Yes Reviewed vaccine status: No Chronic & current problems reconciled on problem list: Yes Additional follow up plans: Follow-up with [facility] for counseling for depression Extended disability Follow-up with internal medicine for blood pressure checks. Follow up: mental health concerns (At [facility]) Additional counseling & anticipatory guidance provided: Patient called told to go to the ER if she feels like she is going to harm herself her baby or someone else. Medication offered for depression and declined. Counseling accepted. Will refer to [facility]
== END 2025-02-14 15:50 | disposition home or self-care (01) ==
LOC: HODSOBC 14:06
PROVIDERS: PCP Obstetrics & Gynecology; Referring Provider Obstetrics & Gynecology; Supervising Provider Obstetrics & Gynecology; Visit Provider Obstetrics & Gynecology
DX: Z39.2 Encounter for routine postpartum follow-up (principal); O99.345 Other mental disorders complicating the puerperium; F53.0 Postpartum depression; O10.93 Unspecified pre-existing hypertension complicating the puerperium; Z79.899 Other long term (current) drug therapy; Z98.51 Tubal ligation status; Z75.8 Other problems related to medical facilities and other health care

== ENCOUNTER 2025-03-27 13:25 | Outpatient (AMB) | payer MEDICAID, SELFPAY ==
[2025-03-27 13:40] VITALS: BP 148/93; PULSE 76; RESP 18; TEMP 36.2; O2SAT 98; BMI 40.1
--- NOTE | 2025-03-27 13:40 | AMBOBPPN_ITS ---
Vital Signs 03/27/25 13:40 Height 1.52 m Height Method Stated Weight 92.646 kg Weight Measurement Method Standing Scale BMI 40.1 BP 148/93 H Blood Pressure Source Automatic Cuff Blood Pressure Location Left Upper Arm Position Sitting Respiration 18 Pulse 76 Pulse Source Monitor Temp 97.2 F Temp Source Oral Pulse Oximetry (%) 98 Oxygen Delivery Method Room Air Allergies/Home Meds Allergies & Medications Allergies No Known Allergies Allergy (Verified 03/27/25 13:40) Medication Reconciliation metformin 500 mg tablet 500 mg PO BID GDM 10/31/24 [History Confirmed 03/27/25] fluconazole 150 mg tablet 150 mg PO QDAY #1 tab 01/25/25 [Rx Confirmed 03/27/25] labetalol 300 mg tablet 300 mg PO DAILY #30 tabs 01/25/25 [Rx Confirmed 03/27/25] nifedipine 30 mg tablet,extended release 24 hr 30 mg PO QDAY #30 tabs 01/25/25 [Rx Confirmed 03/27/25] nystatin 100,000 unit/gram topical powder 1 applic topical TID #30 grams 01/25/25 [Rx Confirmed 03/27/25] Intake Visit Data Collection New Patient or Established: Established Patient (seen at [facility] within 3 years) Reason for Visit:: PSTPARTUM Seen by Clinical Staff ONLY (RN/MA): No Photographic Double Required: No Do You Feel Safe at Home: Yes Authorities Contacted: N/A PCP or OBGYN visit in last 3 months: Yes Date of Last PCP or OBGYN visit: 02/14/25 Hx Now: Yes Are you currently on any form of Control: No Last menstrual period: 03/11/25 Pain Present Currently: No Pain Scale Used: [place]/Numerical Pain scale:: 0 Smoking Status Smoking Status: 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 Tobacco History Smoking Status: 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 Second Hand Smoke Exposure: No Alcohol History Alcohol Intake: Never Domestic Abuse History Do You Feel Safe at Home: Yes EPDS - PP Depression Screening [place] Pospartum Depression Screen I have been able to laugh and see the funny side of things: (0) As much as I always could I have looked forward with enjoyment to things: (0) As much as I ever did I have blamed myself unnecessarily when things went wrong: (0) No, never I have been anxious or worried for no good reason: (0) No, not at all I have felt scared or panicky for no very good reason: (0) No, not at all Things have been getting on top of me: (0) No, I have been coping as well as ever I have been so unhappy that I have had difficulty sleeping: (0) No, not at all I have felt sad or miserable: (0) No, not at all I have been so unhappy that I have been crying: (0) No, never The thought of harming myself has occurred to me: (0) Never Total Score: EPDS Score: Referral is indicated for score of 9 or more, suicidal, or if provider believes patient is depressed regardless of score.: 0 EPDS completed yes Care OB Visit Log OB Flowsheet Initial Weight: Not Recorded Date -?-?-?-?-?-?-?-?-?-?-?-?- EGA Weight BP Alb Glu CTX Pres Fundal ht FHR Mov Dilation Station Effacement Hx Notes Visit Note 12/22/24 -?-?-?-?-?-?-?-?-?-?-?-?- 37w 0d 105.29 kg 164/91 absent cephalic 39 156 active 39-year-old 6 para 5 for first OB appointment. Patient is a transfer care from [facility]. History of diabetes with this . Patient is been taking metformin 500 twice daily with good compliance. Patient had good compliance with her diet. Patient reports that she checks her sugars 4 times a day. Fastings have been all below 100. And she reports that she is at goal about 90% of the time. Compliant with weekly NST BPP. Patient has a history biggest baby being 9 pounds 12. She states this baby is just as big. Denies any PIH complaints at this time. Blood pressure today 164/91 and then she had at 150/90. Reports good movement. No leaking or bleeding. So I directed patient to go to labor and delivery for PIH workup at this time. Medical release has been filled out at [facility] [employer] [facility] for records. 39-year-old 6 para 5 for first OB appointment. Patient is a transfer care from [facility]. History of diabetes with this . Patient is been taking metformin 500 twice daily with good compliance. Patient had good compliance with her diet. Patient reports that she checks her sugars 4 times a day. Fastings have been all below 100. And she reports that she is at goal about 90% of the time. Compliant with weekly NST BPP. Patient has a history biggest baby being 9 pounds 12. She states this baby is just as big. Denies any PIH complaints at this time. Blood pressure today 164/91 and then she had at 150/90. Reports good movement. No leaking or bleeding. So I directed patient to go to labor and delivery for PIH workup at this time. Medical release has been filled out at [facility] for records. Labor precautions and kick count twice a day discussed. JOSEMANUEL Calculator Estimated Delivery Date Method Current WG Current Estimate 01/12/25 LMP (Certain) 50w 4d Notes Visit Date: 12/22/24 Last Updated by: Luba Tao CNM G^p5, 37w2. lmp 04/07/25. EDC 01/10/25. GDM on metformin, week NST/BPP HPI Interval History: This is a 40-year-old 6 para 6 here for follow-up on depression. Jaclyn was last seen March [address] Lee. And disability was extended to 12 weeks. Patient is now 12 weeks postdelivery and is here wanting to extend disability today. When patient was seen by Dr Collado March 21, referral to behavioral health was done and also patient was referred to primary practice to monitor diabetes and high blood pressure. Patient developed hypertension during delivery. Patient had a primary and tubal ligation on December 26, 2024 for transverse lie. History of chronic hypertension and GDM during the . Patient has been compliant taking labetalol 300 mg 3 times daily and Procardia XL 30 daily. Patient reports that she is seeing Taisha Blum a month this behavioral health specialist at [facility] for depression. And patient's next appointment with her is in a week. Patient also states that she has an appointment in [place] with Dr. Farhad Taylor for diabetes and high pressure blood pressure management. Patient reports that is she is feeling a little bit better. Does not want to hurt herself. Has no suicidal ideation. Patient reports that she is bonding and caring for the baby. And has help at home. Denies any postop complications. Denies any complaints of pain. Was or delivery considered high risk: Yes Delivery type: (x1 with BTL) Was labor induced: no Gestational age at delivery (weeks): 38 Delivery date: 12/26/24 Delivering provider: CYNTHIA Delivery complications: Yes Delivery complications comment: depression Is patient infant: No Is patient sexually active: Yes Contraception planned: BTL Office Procedures OB Clinic LOC & Office Proc's Nursing/Assessment Patient Status: Established Patient OB Clinic Nursing Assessment: Medication Reconciliation, Update PMH in EMR and Vital Signs OB Clinic Coordination of Care: Complex Care and Chronic Disease 1-5, Consent,records obtained, informed consent, Education Simp Pt/Fam, Results/Orders obtained and Staff clarify orders Established Patient Charge Established Patient Point Assignment: 90 Post Follow-up Visit Post Follow up Visit: Yes Assessment & Plan Diagnosis / Problem List (1) Hypertension affecting : Status: Acute Qualifiers: Trimester: third trimester Qualified Code(s): O16.3 - Unspecified maternal hypertension, third trimester (2) Post depression: Status: Acute Plan Continue labetalol 300 3 times daily. Procardia XL 30 mg daily as directed. Patient continues to monitor blood pressures at home. Patient to continue GDM diet. And to walk 30 minutes a day. Patient will keep appointment with Taisha Zimmerman's replenishment specialist in a week. And she will also keep her appointment with Farhad Taylor to manage high blood pressure and diabetes. Advised to walk. I discussed relaxation techniques with patient discussed maintenance of diet and increase fluids. Patient will follow-up with Dr Collado as needed for disability Care Reviewed delivery summary and any complications: Yes Uterus involuted to: 3 below Perineal / incision healing noted: No Screened for depression: Yes Depression counseling provided: Yes Discussed family planning & contraception: No Contraception planned: BTL Counseling on safe resumption of sexual activity: Yes Counseling on gradual excercise: Yes Discussed and concerns (describe), provided support: Yes Referred to geospatial specialist: No Counseled on good nutrition, hydration, and self care: Yes Reviewed vaccine status: No care discussed; questions answered: feeding Follow up: routine/prn Additional counseling & anticipatory guidance provided: Continue to follow-up with behavioral health in a week. Discussed ER precautions and patient to go to emergency room if she has increased feelings of depression, thoughts of harming herself or suicidal ideology. Patient had still declined any medication for anxiety and depression. 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 and she can follow-up with Dr. White for disability.
== END 2025-03-27 14:57 | disposition home or self-care (01) ==
LOC: HODSOBC 13:25
PROVIDERS: Supervising Provider Advanced Practice Midwife; Visit Provider Advanced Practice Midwife
DX: Z39.2 Encounter for routine postpartum follow-up (principal); O99.345 Other mental disorders complicating the puerperium; F53.0 Postpartum depression; O10.93 Unspecified pre-existing hypertension complicating the puerperium; O24.435 Gestational diabetes mellitus in puerperium, controlled by oral hypoglycemic drugs; Z79.899 Other long term (current) drug therapy
CPT/HCPCS: Z1038